=== PATIENT | male | born 1970 | race Hispanic/Latino ===

== ENCOUNTER 2016-12-25 20:18 | Emergency (ER) | payer OTHER ==
[~2016-12-25] VITALS: Ht 182.9 cm; Wt 125.0 kg
[2016-12-25 20:25] VITALS: BP 146/83
[2016-12-25] MEDS ORDERED: RANI1TAB6 PO (20:35)
[2016-12-25] MEDS ORDERED: HYDR25TA6 PO (20:35)
[2016-12-25] MEDS ORDERED: BUPR300T34 PO (20:35)
[2016-12-25] MEDS ORDERED: LOSA50TA20 (20:35)
[2016-12-25] MEDS ORDERED: ATOR40TA75 PO (20:35)
[2016-12-25] MEDS ORDERED: SERT-155 PO (20:36)
[2016-12-25] MEDS ORDERED: VITA200038 PO (20:37)
[2016-12-25] MEDS ORDERED: NS 1,000 ML IV ONE (23:15)
[2016-12-25 23:40] LABS: BASO # 0.1 K/mm3 (0.0-0.2); BASO % 0.9 % (0.0-1.0); EOS # 0.3 K/mm3 (0.0-0.50); LARGE UNSTAINED CELL # 0.1 K/mm3 (0.0-0.4); LARGE UNSTAINED CELL % 1.8 % (0.0-4.0); LYMPH # 2.1 K/mm3 (1.5-4.5); LYMPH % 30.6 % (24.0-44.0); MEAN CORPUSCULAR HEMOGLOBIN 32.2 pg (27.0-33.0); MEAN CORPUSCULAR HGB CONC 35.7 g/dl (32.0-36.5); MEAN CORPUSCULAR VOLUME 90.1 fl (80.0-96.0); MONO # 0.4 K/mm3 (0.0-0.8); MONO % 5.7 % (0.0-5.0); NEUTROPHILS # 3.9 K/mm3 (1.8-7.7); PLATELET COUNT, AUTOMATED 231 k/mm3 (150-450); RED CELL DISTRIBUTION WIDTH 12.1 % (11.5-14.5); WHITE BLOOD COUNT 6.8 K/mm3 (4.0-10.0)
[2016-12-26 00:03] LABS: ANION GAP 2 MEQ/L (8-16); BLOOD UREA NITROGEN 14 MG/DL (7-18); CALCIUM LEVEL 8.8 MG/DL (8.5-10.1); CARBON DIOXIDE LEVEL 31 MEQ/L (21-32); CHLORIDE LEVEL 108 MEQ/L (98-107); CREATININE FOR GFR 1.12 MG/DL (0.70-1.30); GLOMERULAR FILTRATION RATE > 60.0 (>60); GLUCOSE, FASTING 101 MG/DL (70-105); SODIUM LEVEL 141 MEQ/L (136-145)
[2016-12-26] MEDS ORDERED: ISOVUE-370 76% 100ML VIAL (Q9967) As Ordered ONE (00:05)
[2016-12-26] MEDS ORDERED: metroNIDAZOLE (FLAGYL) 250 MG TAB As Ordered ONE (01:44)
--- NOTE | 2016-12-26 01:53 | REPUSA ---
CLINICAL HISTORY: Abdominal pain. TECHNIQUE: Multiple axial, sagittal and coronal CT images were obtained through the abdomen and pelvi s after administration of intravenous contrast material. COMMENTS: Diffuse thickening of the rectosigmoid colon. Fat stranding surrounding the proximal sigmoid. The liver is moderately enlarged with decreased attenuation without mass or defect. There is no intra or extrahepatic biliary ductal dilatation. The spleen is normal. The gallbladder is within normal li mits. The pancreas is of normal contour and attenuation characteristics. There is no evidence of adre nal mass. Both kidneys demonstrate prompt and equal nephrograms. The kidneys are normal in size, shape and conf iguration. There is no evidence of renal or ureteral mass. No renal or ureteral calculi are identifie d. There is no hydroureter or hydronephrosis. No evidence for appendicitis. No evidence for small or large bowel obstruction. There is no evidence of abdominal ascites or lymphadenopathy. There is no evidence of intrinsic or extrinsic bladder mass. There is no pelvic ascites or lymphadeno macarena. Images of the lung bases show no evidence of pleural or parenchymal mass. There are no pleural effusi ons. The bony structures are free of lytic or blastic lesions. IMPRESSION: Acute sigmoid diverticulitis. No perforation or abscess formation. Thank you for your kind referral of this patient.
[2016-12-26] MEDS ORDERED: CIPROFLOXACIN 500 MG TAB PO ONE (02:00)
[2016-12-26] MEDS ORDERED: metroNIDAZOLE (FLAGYL) 500 MG TAB PO ONE (02:15)
[2017-02-11] MEDS ORDERED: ASTE0.15 (08:38)
[2017-02-11] MEDS ORDERED: ALBU17IN2 INH (08:38)
[2017-02-11] MEDS ORDERED: VENTAER IN (08:38)
[2017-02-11] MEDS ORDERED: LISI-538 PO (08:38)
== END 2016-12-26 02:10 | disposition home or self-care (01) ==
LOC: M ED 20:18
DX: K57.32 Diverticulitis of large intestine without perforation or abscess without bleeding (principal); I10 Essential (primary) hypertension; E78.4 Other hyperlipidemia
CPT/HCPCS: 74177; 80048; 85025; 99283; Q9967

== ENCOUNTER 2017-03-06 10:49 | Day surgery (SDC) | payer OTHER ==
[~2017-03-06] VITALS: Ht 182.9 cm; Wt 120.2 kg
[~2017-03-06 10:49] MED LIST: ALBU17IN2 INH; ASTE0.15; ATOR40TA75 PO; BUPR300T34 PO; HYDR25TA6 PO; LISI-538 PO; LOSA50TA20; RANI1TAB6 PO; SERT-155 PO; VENTAER IN; VITA200038 PO
[2017-03-06] MEDS ORDERED: NS 1,000 ML IV ONE (11:00)
[2017-03-06] MEDS ORDERED: PROPOFOL 200 MG/20 ML VIAL As Ordered ONE ×2 (11:33→11:41)
[2017-03-06] MEDS ORDERED: LIDOCAINE 2% INJ 100 MG/5 ML SDV (FOR ANES.) As Ordered ONE (11:33)
--- NOTE | 2017-03-06 11:58 | ROOR ---
Patient Name: Domo Antunez Procedure Date: 03/06/2017 11:34 AM Date of : 1970 Age: 47 Room: [facility] Gender: Male Note Status: Finalized Procedure: Colonoscopy Indications: Suspected diverticulitis Providers: DO Benjamin Abreu MD: FLAVIO CARVAJAL MD Requesting Provider: Medicines: Propofol per Anesthesia Complications: No immediate complications. Procedure: Pre-Anesthesia Assessment: - Prior to the procedure, a History and Physical was performed, and patient medications and allergies were reviewed. The patient is competent. The risks and benefits of the procedure and the sedation options and risks were discussed with the patient. All questions were answered and informed consent was obtained. Patient identification and proposed procedure were verified by the physician, the nurse, the anesthesiologist and the retail merchandiser technician in the endoscopy suite. Mental Status Examination: alert and oriented. Airway Examination: normal oropharyngeal airway and neck mobility. Respiratory Examination: clear to auscultation. CV Examination: normal. Prophylactic Antibiotics: The patient does not require prophylactic antibiotics. Prior Anticoagulants: The patient has taken no previous anticoagulant or antiplatelet agents. ASA Grade Assessment: II - A patient with mild systemic disease. After reviewing the risks and benefits, the patient was deemed in satisfactory condition to undergo the procedure. The anesthesia plan was to use monitored anesthesia care (MAC). Immediately prior to administration of medications, the patient was re-assessed for adequacy to receive sedatives. The heart rate, respiratory rate, oxygen saturations, blood pressure, adequacy of pulmonary ventilation, and response to care were monitored throughout the procedure. The physical status of the patient was re-assessed after the procedure. The Colonoscope was introduced through the anus and advanced to the cecum, identified by the appendiceal orifice, ileocecal valve and palpation. The colonoscopy was performed without difficulty. The patient tolerated the procedure well. Findings: The perianal exam findings include non-thrombosed internal hemorrhoids and internal hemorrhoids (Grade I). Four hyperplastic polyps were found in the sigmoid colon and ascending colon. The polyps were less than 5 mm in size. These polyps were removed with a cold biopsy forceps. Resection and retrieval were complete. Estimated blood loss was minimal. The exam was otherwise without abnormality on direct and retroflexion views. Impression: - Non-thrombosed internal hemorrhoids and internal hemorrhoids (Grade I) found on perianal exam. - Four less than 5 mm polyps in the sigmoid colon and in the ascending colon, removed with a cold biopsy forceps. Resected and retrieved. - The examination was otherwise normal on direct and retroflexion views. Recommendation: - Patient has a contact number available for emergencies. The signs and symptoms of potential delayed complications were discussed with the patient. Return to normal activities tomorrow. Written discharge instructions were provided to the patient. - Return to my office PRN. - Telephone my office for pathology results in 1 week. Santosh Atkins DO 03/06/2017 11:58:22 AM This report has been signed electronically. Number of Addenda: 0 Note Initiated On: 03/06/2017 11:34 AM Estimated Blood Loss: Estimated blood loss was minimal.
[2017-03-06 12:25] VITALS: BP 113/65
== END 2017-03-06 12:46 | disposition home or self-care (01) ==
LOC: M OPP 10:49
PROVIDERS: ATTEND Surgery
DX: K64.0 First degree hemorrhoids (principal); K63.5 Polyp of colon; I10 Essential (primary) hypertension; E78.5 Hyperlipidemia, unspecified; K21.9 Gastro-esophageal reflux disease without esophagitis; F41.9 Anxiety disorder, unspecified; F32.9 Major depressive disorder, single episode, unspecified; Z79.899 Other long term (current) drug therapy

== ENCOUNTER → 2018-10-22 | Outpatient (CLI) | payer OTHER ==
[~2018-10-22] MED LIST changes: -LOSA50TA20; +LOSA50TA88
--- NOTE | 2018-10-22 12:52 | REP ---
Right ankle four views: There is no fracture or dislocation. The mortise is symmetric. Mineralization is normal. There is a large accessory ossicle measuring 12 mm in diameter along the plantar surface of the calcaneus. There is a tiny Achilles calcaneal spur. Impression: Large accessory ossicle along the plantar surface of the calcaneus. Tiny calcaneal Achilles spur. No fracture or dislocation. Electronically Signed by Santosh Reynoso MD 10/22/2018 12:43 P
--- NOTE | 2018-10-22 12:55 | REP ---
Right foot four views: There is no fracture or dislocation. Mineralization and joint spaces are unremarkable. There is a large 12 mm calculus along the plantar surface of the calcaneus. There is a tiny calcaneal Achilles spur. Electronically Signed by Santosh Reynoso MD 10/22/2018 12:45 P
== END ==
LOC: M WUC 11:48
PROVIDERS: ATTEND Physician Assistant
DX: S93.601A Unspecified sprain of right foot, initial encounter (principal)

== ENCOUNTER → 2018-11-18 | Outpatient (CLI) | payer OTHER ==
[~2018-11-18] MED LIST changes: +PROHANCE 279.3MG/ML 15ML VIAL (A9576) As Ordered ONE; +PROHANCE 279.3MG/ML 5ML VIAL (A9576) As Ordered ONE
--- NOTE | 2018-11-19 10:04 | REP ---
MRI RIGHT ANKLE WITHOUT AND WITH CONTRAST: 11/18/2018 Comparison x-ray 10/22/2018, 08/05/29 19. CLINICAL HISTORY: Mass just above the medial ankle. TECHNIQUE: Sagittal T1 and STIR, axial fat suppressed T2, T1 without and with fat suppression with coronal fat suppressed T2, and following infusion of 20 mL ProHance, fat suppressed T1 axial and coronal images were performed. FINDINGS: There is a low T1, bright T2 bilobed focus about 3.5 cm above the tibial plafond laterally and posterolaterally. Appears to surround the posterior tibialis tendon and extends downward to the sheath just below the medial malleolus and upward 2 more centimeters. Overall vertical extent is about 7 cm. The transverse bilobed component has a diameter of 3.3 cm and its maximum thickness about 1.4 cm. It has lobulated contours which appear thin on the precontrast images. Rim enhancement on the contrast exam is typical appearance seen in ganglion cyst. I do not see a disruption or tear of the posterior tibial tendon. Fluid surrounds the tendon distally and some abuts the FDL. Trace fluid about the FHL. PB/PL tendons grossly intact. Spurring at the plantar calcaneal surface inferiorly with the tiny spur on radiograph developing at the Achilles insertion not well seen. Mortise joint was symmetric. There is no talar dome osteochondral defect. Subtalar joints are grossly intact. There is some fluid posterior to the posterior subtalar joint and posterior ankle as well as anterior ankle. Laxity of the anterior talofibular, posterior talofibular, calcaneofibular ligaments, anterior tibiofibular ligaments intact. AT, DL, and EHL tendons grossly intact. Marrow signal shows no definite bone bruise or fracture in the hind foot. The visualized tarsal bones and proximal metatarsals intact. IMPRESSION: 1. There is a complex lobulated cystic mass vertically extending 7 cm from above the tibial plafond to below the medial malleolus and associated with the sheath or tendon of the posterior tibialis. Has fluid signal characteristics by T1 and T2 and only shows rim enhancement very similar to ganglion. The posterior tibial tendon shows no tear or visible mass itself. 2. FDL and FHL tendons as well as the PB/PL and anterior tendons grossly intact. No Achilles tear or tendinopathy. 3. Anterior and posterior ankle ligamentous strain as described. No fracture, loose body, or disruption of the mortise joint. Electronically Signed by Anderson Diamond MD 11/19/2018 11:20 A
== END ==
LOC: M RAD 14:19
PROVIDERS: ATTEND Podiatrist
DX: M79.9 Soft tissue disorder, unspecified (principal)

== ENCOUNTER → 2018-11-25 | Outpatient (REF) | payer OTHER ==
[~2018-11-25] MED LIST changes: -ALBU17IN2 INH; -PROHANCE 279.3MG/ML 15ML VIAL (A9576) As Ordered ONE; -PROHANCE 279.3MG/ML 5ML VIAL (A9576) As Ordered ONE; +PROV108A INH; +RANI-356 PO; -RANI1TAB6 PO
== END ==
LOC: M LAB REF 11:57
PROVIDERS: ATTEND Podiatrist
DX: M67.471 Ganglion, right ankle and foot (principal)

== ENCOUNTER → 2018-12-23 | Outpatient (CLI) | payer OTHER ==
[~2018-12-23] MED LIST changes: -BUPR300T34 PO; +BUPR300T92 PO; +HYDR12.55 PO; +HYDR25TAB PO; -RANI-356 PO; +RANI-397 PO; -SERT-155 PO; +SERT50TA29 PO
[2018-12-23 12:59] LABS: BASO # 0.1 10^3/uL (0.0-0.2); BASO % 1.1 % (0.0-1.0); EOS # 0.1 10^3/uL (0.0-0.5); EOS % 1.5 % (0.0-3.0); HEMATOCRIT 48.9 % (42.0-52.0); LYMPH # 1.9 10^3/uL (1.5-5.0); LYMPH % 29.2 % (24.0-44.0); MEAN CORPUSCULAR HEMOGLOBIN 30.8 pg (27.0-33.0); MEAN CORPUSCULAR HGB CONC 34.8 g/dl (32.0-36.5); MEAN CORPUSCULAR VOLUME 88.6 fl (80.0-96.0); MONO # 0.5 10^3/uL (0.0-0.8); MONO % 7.3 % (0.0-5.0); NEUTROPHILS % 60.6 % (36.0-66.0); PLATELET COUNT, AUTOMATED 261 10^3/uL (150-450); RED BLOOD COUNT 5.52 10^6/uL (4.30-6.10); WHITE BLOOD COUNT 6.5 10^3/uL (4.0-10.0)
[2018-12-23 13:20] LABS: BLOOD UREA NITROGEN 16 MG/DL (7-18); CALCIUM LEVEL 9.9 MG/DL (8.5-10.1); CARBON DIOXIDE LEVEL 30 MEQ/L (21-32); CHLORIDE LEVEL 104 MEQ/L (98-107); CREATININE FOR GFR 1.18 MG/DL (0.70-1.30); GLOMERULAR FILTRATION RATE > 60.0 (>60); GLUCOSE, FASTING 90 MG/DL (70-100); POTASSIUM SERUM 4.2 MEQ/L (3.5-5.1); SODIUM LEVEL 139 MEQ/L (136-145)
--- NOTE | 2018-12-24 10:19 | ECGEPIP ---
[facility] Test Date: 2018-12-23 Pat Name: LIONEL ALFARO Department: Room: - Gender: Male Didactic Program In Dietetics Director: SARAH : 1970 Requested By: David Henry Order Number: [id number] Reading MD: Waldo Artis Measurements Intervals [place] Rate: 66 P: 2 OR: 194 QRS: 3 QRSD: 114 T: 2 QT: 433 QTc: 456 Interpretive Statements SINUS RHYTHM MODERATE INTRAVENTRICULAR CONDUCTION DELAY Prolonged QTc interval Nonspecific T wave abnormality Electronically Signed on 12-24-2018 10:19:34 EDT by Waldo Artis
== END ==
LOC: M LAB 12:09
PROVIDERS: ATTEND Podiatrist
DX: M25.571 Pain in right ankle and joints of right foot (principal); D49.2 Neoplasm of unspecified behavior of bone, soft tissue, and skin

== ENCOUNTER 2019-01-02 07:20 | Day surgery (SDC) | payer OTHER ==
[~2019-01-02] VITALS: Ht 182.9 cm; Wt 127.6 kg
[~2019-01-02 07:20] MED LIST changes: +BACITRACIN PWD 50,000 UNITS VIAL As Ordered ONE; +BUPIVACAINE HCL 0.5% 30 ML VIAL As Ordered ONE; +BUPR300T34 PO; -BUPR300T92 PO; +KETOROLAC 60 MG/2 ML VIAL (J1885) As Ordered ONE; +LIDOCAINE 2% INJ 100 MG/5 ML SDV (FOR ANES.) As Ordered ONE; +LIDOCAINE 2% MDV 20 ML VIAL As Ordered ONE; +LR 1,000 ML IV ONE; +MIDAZOLAM INJ 2 MG/2 ML VIAL (J2250) As Ordered ONE; +NEOSPORIN GU IRRIG 20 ML VIAL As Ordered ONE; +ONDANSETRON 4MG/2ML VIAL (J2405) As Ordered ONE; +RANI-356 PO; -RANI-397 PO; +SERT-155 PO; -SERT50TA29 PO; +ceFAZolin SOD 2 GM in IV 1 EA IV ONE; +dexameTHASONE 4 MG/ML 1ML VIAL (J1100) As Ordered ONE; +fentaNYL 100 MCG/2 ML INJECTION (J3010) As Ordered ONE
[2019-01-02] MEDS ORDERED: PROPOFOL 200 MG/20 ML VIAL As Ordered ONE (07:57)
[2019-01-02] MEDS ORDERED: ROCURONIUM BROMIDE 50 MG/5 ML VIAL As Ordered ONE (08:34)
[2019-01-02] MEDS ORDERED: fentaNYL 100 MCG/2 ML INJECTION (J3010) As Ordered ONE (09:37)
[2019-01-02] MEDS ORDERED: ACETAMINOPHEN 1000MG 100ML IV BTL (OFIRMEV) (J0131 PER 10MG) As Ordered ONE (09:38)
[2019-01-02] MEDS ORDERED: SUGAMMADEX SODIUM 500 MG/5 ML VIAL (BRIDION) As Ordered ONE (09:55)
[2019-01-02] MEDS ORDERED: ePHEDrine SULFATE 25 MG/5 ML(5MG/ML) SYRINGE As Ordered ONE (10:13)
[2019-01-02] MEDS ORDERED: dexameTHASONE 4 MG/ML 1ML VIAL (J1100) As Ordered ONE (10:25)
[2019-01-02 12:00] VITALS: BP 120/74
[2019-01-02] MEDS ORDERED: ONDANSETRON 4MG/2ML VIAL (J2405) IV PRN (12:00)
[2019-01-02] MEDS ORDERED: fentaNYL 100 MCG/2 ML INJECTION (J3010) IV PRN (12:00)
[2019-01-02] MEDS ORDERED: LR 1,000 ML IV SCH (12:00)
--- NOTE | 2019-01-02 21:39 | RO ---
DATE OF PROCEDURE: 01/02/2019 PREOPERATIVE DIAGNOSIS: Ganglionic cyst right ankle. POSTOPERATIVE DIAGNOSIS: Ganglionic cyst right ankle. OPERATIVE PROCEDURE: Excision of ganglionic cyst right foot. SURGEON: David Henry DPM VIDEO CAMERA OPERATOR: None. ANESTHESIA: General. IRRIGATION: Dilute bacitracin, neomycin and polymyxin B solution. HEMOSTASIS: Thigh pneumatic tourniquet at 300 mmHg for 45 minutes on the right side. COMPLICATIONS: None. DESCRIPTION OF OPERATION: On 01/02/2019 this 48-year-old male was taken from his hospital room to the operating room. Following the induction of IV sedation and general anesthesia, the right lower extremity was prepped and draped in the usual aseptic manner. Thigh pneumatic tourniquet was rapidly inflated to 300 mmHg. Lower extremity was returned to the operating room table, sterilely draped and was cleaned and the following procedure was performed. EXCISION OF GANGLIONIC CYST RIGHT ANKLE: Attention was directed to the patient's right ankle where inferior to the tip of the medial malleolus, an incision was made and extended dorsally along the posterior shaft of the tibia measuring approximately 8 cm. Dissection was carried down where the retinaculum was cut over the posterior tibial tendon down to the flexor retinaculum on the superior margin inferior to the medial malleolus. A large ganglionic cyst with hypertrophied synovium could be seen. The ganglionic cyst as well as al the hypertrophied synovium around the posterior tibial tendon was then resected. The wound was flushed with copious amounts of dilute bacitracin, neomycin and polymyxin B solution. The retinaculum was coapted and maintained with #2-0 PDS suture in a simple interrupted type fashion. Subcutaneous tissues were coapted and maintained with #2-0 Monocryl in a simple interrupted type fashion and skin incisions were coapted and maintained utilizing #4-0 Prolene in a simple interrupted type fashion. A dry sterile dressing was applied. The patient having apparently tolerated the surgical procedure well was taken from the OR to the recovery room for further monitoring by the anesthesia department. All surgical specimens during the operating procedure sent to pathology for gross and microscopic examination. Post operative instructions given upon discharge.
== END 2019-01-02 12:37 | disposition home or self-care (01) ==
LOC: M SDC 07:20
PROVIDERS: ATTEND Podiatrist
DX: M67.471 Ganglion, right ankle and foot (principal); I10 Essential (primary) hypertension; E78.00 Pure hypercholesterolemia, unspecified; K57.32 Diverticulitis of large intestine without perforation or abscess without bleeding; K21.9 Gastro-esophageal reflux disease without esophagitis; M15.0 Primary generalized (osteo)arthritis; F41.9 Anxiety disorder, unspecified; F32.9 Major depressive disorder, single episode, unspecified; J45.909 Unspecified asthma, uncomplicated; R06.83 Snoring; G47.33 Obstructive sleep apnea (adult) (pediatric); J30.89 Other allergic rhinitis; Z79.899 Other long term (current) drug therapy; Z68.37 Body mass index [BMI] 37.0-37.9, adult
CPT/HCPCS: 28090; 88304; 97116; J0131; J0690; J1100; J1885; J2250; J2405; J3010

== ENCOUNTER → 2019-08-27 | Outpatient (CLI) | payer OTHER ==
[~2019-08-27] MED LIST changes: -BACITRACIN PWD 50,000 UNITS VIAL As Ordered ONE; -BUPIVACAINE HCL 0.5% 30 ML VIAL As Ordered ONE; -BUPR300T34 PO; +BUPR300T92 PO; -KETOROLAC 60 MG/2 ML VIAL (J1885) As Ordered ONE; -LIDOCAINE 2% INJ 100 MG/5 ML SDV (FOR ANES.) As Ordered ONE; -LIDOCAINE 2% MDV 20 ML VIAL As Ordered ONE; -LR 1,000 ML IV ONE; -MIDAZOLAM INJ 2 MG/2 ML VIAL (J2250) As Ordered ONE; -NEOSPORIN GU IRRIG 20 ML VIAL As Ordered ONE; -ONDANSETRON 4MG/2ML VIAL (J2405) As Ordered ONE; -RANI-356 PO; +RANI-397 PO; -SERT-155 PO; +SERT50TA29 PO; -ceFAZolin SOD 2 GM in IV 1 EA IV ONE; -dexameTHASONE 4 MG/ML 1ML VIAL (J1100) As Ordered ONE; -fentaNYL 100 MCG/2 ML INJECTION (J3010) As Ordered ONE
--- NOTE | 2019-08-28 01:15 | REP ---
Clinical: Right hip pain. Technique: Neutral and frog lateral views of the right hip. Findings: Age-related changes include increased sclerosis to the acetabular roof with very minimal joint space narrowing. No significant osteophytosis or further degenerative changes are appreciated. No evidence for acute fracture or dislocation. Surrounding soft tissues are unremarkable. Impression: Age-related changes suggested. Electronically Signed by Ayush Street MD 08/28/2019 01:06 A
--- NOTE | 2019-08-28 01:27 | REP ---
Clinical: Lower back pain. Technique: AP, lateral, coned-down views of the lumbosacral spine. Findings: Alignment and lordosis maintained without evidence for acute fracture / compression injury or subluxation. Moderate multilevel degenerative changes include endplate sclerosis, marginal osteophytosis, hypertrophic facet changes and minimal disc space narrowing. Impression: Moderate multilevel degenerative spondylosis. No acute fracture or subluxation. Electronically Signed by Ayush Street MD 08/28/2019 01:18 A
== END ==
LOC: M WUC 15:20
PROVIDERS: ATTEND Physician Assistant
DX: M51.37 Other intervertebral disc degeneration, lumbosacral region (principal); M54.5 Low back pain; M25.551 Pain in right hip

== ENCOUNTER 2020-05-04 15:10 | Inpatient (IN) | payer OTHER ==
[~2020-05-04] VITALS: Ht 180.3 cm; Wt 120.0 kg
--- OUTSIDE RECORDS SUMMARY | 2020-05-04 15:21 | CCD | Continuity of Care Document ---
Author Author Domo BYERS Organization Unknown Address [address] [place] [address] [place] [address] Phone [phone] Care Team Providers Care Vehicle Mechanic Name Role Phone Bisi Smiley AUTM [phone] Krishna Dennis Arnulfo AUTM [phone] Problems Description No Information Available Social History Type Date Description Comments Sex Unknown ETOH Use Occasionally consumes alcohol Tobacco Use Start: Unknown Patient has never smoked Smoking Status Reviewed: 05/03/20 Patient has never smoked Allergies, Adverse Reactions, Alerts Active Allergies Reaction Severity Comments Date Walnuts 05/03/2020 Pecans 05/03/2020 Pistachios 05/03/2020 Inactive Allergies NKDA 05/10/2014 Medications Active Medications SIG Qnty Indications Ordering Provide r Date Prednisone 20mg Tablets take one tablet twice a day x 5 days 10tabs J45.21 Ashley Cheng JR. 04/29/2020 Azithromycin 250mg Tablets take two tablets day one, one tablet day 2-5 6tabs J45.21 Jarrett ziegler JR., M.D. 04/29/2020 Bupropion HCL ER (XL) 300mg Tablets ER 24HR Kaylee Valera RPA 00 Vitamin D3 Adult Gummies Unknown Sertraline HCL 100mg Tablets Unknown Atorvastatin Calcium 80mg Tablets Unknown Lisinopril Unknown Albuterol Sulfate Unknown 0000/0 000 Medications Administered in Office Medication SIG Qnty Indications Ordering Provider Date Methylprednisolone Sodium Succinate To 1 25 MG Injection CHRISTIAN Lay 2020 Immunizations Description No Information Available Vital Signs Date Vital Result Comment 05/03/2020 1:39pm BP Systolic 132 mmHg BP Diastolic 81 mmHg Heart Rate 96 /min Respiratory Rate 23 /min O2 % BldC Oximetry 96 % Body Temperature 99.3 F Weight 262.00 lb Pain Level 4 04/29/2020 8:14am BP Systolic 129 mmHg BP Diastolic 89 mmHg Heart Rate 77 /min Respiratory Rate 16 /min O2 % BldC Oximetry 98 % Body Temperature 97.7 F Weight 262.00 lb Pain Level 1 Results Description No Information Available Procedures Date Code Description Status 05/03/2020 74996 Therapeutic, Prophylactic Or [place] gnostic Injection Subq/Im Completed Medical Devices Description No Information Available Encounters Type Date Location Provider Dx Diagnosis Office Visit 05/03/2020 1:20p Main Office CHRISTIAN Lay J45.9 01 Unspecified asthma with (acute) exacerbation Z20.828 Contact w and exposure to ot h viral communicable diseases Office Visit 04/29/2020 8:00a Main Office CHRISTIAN Nguyen J45 .21 Mild intermittent asthma with (acute) exacerbation Assessments Date Code Description Provider 05/03/2020 J45.901 Unspecified asthma with (acute) exacerbation CHRISTIAN Lay 05/03/2020 Z20.828 Contact with and (park spected) exposure to other viral communicable diseases CHRISTIAN Lay 04/29/2020 J45.21 Mild intermittent asthma with (a cute) exacerbation CHRISTIAN Nguyen Plan of Treatment No Information Available Functional Status Description No Information Available Mental Status Description No Information Available Referrals Description No Information Available
--- OUTSIDE RECORDS SUMMARY | 2020-05-04 15:22 | CCD | Continuity of Care Document ---
Author Author Domo PHAN [place] Organization Unknown Address [address] [place] [address] [place] [address] Phone [phone] Care Team Providers Care Centrifugal Machine Tender Name Role Phone Bisi SmileyM [phone] Problems Description No Information Available Social History Type Date Description Comments Sex Unknown ETOH Use Occasionally consumes alcohol Tobacco Use Start: Unknown Patient has never smoked Smoking Status Reviewed: 04/29/20 Patient has never smoked Allergies, Adverse Reactions, Alerts Description No Known Drug Allergies Medications Active Medications SIG Qnty Indications Ordering [...] Tablets Unknown Lisinopril Unknown Albuterol Sulfate Unknown 0 000 Immunizations Description No Information Available Vital Signs Date Vital Result Comment 04/29/2020 8:14am BP Systolic 129 mmHg BP Diastolic 89 mmHg Heart Rate 77 /min Respiratory Rate 16 /min O2 % BldC Oximetry 98 % Body Temperature 97.7 F Weight 262.00 lb Pain Level 1 10/22/2018 11:24am BP Systolic 132 mmHg BP Diastolic 87 mmHg Heart Rate 65 /min Respiratory Rate 16 /min O2 % BldC Oximetry 95 % Body Temperature 97.8 F Weight 280.00 lb Height 72 inches 6'0" BMI (Body Mass Index) 38.0 kg/m2 Pain Level 8 Results Description No Information Available Procedures Description No Information Available Medical Devices Description No Information Available Encounters Type Date Location Provider Dx Diagnosis Office Visit 04/29/2020 8:00a Main Office CHRISTIAN Nguyen J45 .21 Mild intermittent asthma with (acute) exacerbation Assessments Date Code Description Provider 04/29/2020 J45.21 Mild intermittent asthma with (a cute) exacerbation CHRISTIAN Nguyen Plan of Treatment 04/29/2020 - CHRISTIAN Nguyen* J45.21 Mild intermittent asthma with (acute) exacerbation* New Medication:* Prednisone 20 mg - take one tablet twice a day x 5 days * Azithromycin 250 mg - take two tablets day one, one tablet day 2-5 Functional Status Description No Information Available Mental Status Description No Information Available Referrals Description No Information Available
--- OUTSIDE RECORDS SUMMARY | 2020-05-04 15:22 | CCD ---
Author Author [facility] Organization [facility] Address Unknown Phone Unavailable Care Team Providers Care Clinical Resource Nurse Name Role Phone Scordo, M Bisi PA Unavailable Unavailable Scordo, M Bisi PA Unavailable Unavailable Scordo, M Bisi PA Unavailable Unavailable Scordo, M Bisi PA Unavailable Unavailable Scordo, M Bisi PA Unavailable Unavailable Scordo, M Bisi PA Unavailable Unavailable Scordo, M Bisi PA Unavailable Unavailable Scordo, M Bisi PA Unavailable Unavailable Scordo, M Bisi PA Unavailable Unavailable Scordo, M Bisi PA Unavailable Unavailable Scordo, M Bisi PA Unavailable Unavailable Scordo, M Bisi PA Unavailable Unavailable Scordo, M Bisi PA Unavailable Unavailable Scordo, M Bisi PA Unavailable Unavailable Scordo, M Bisi PA Unavailable Unavailable Scordo, M Bisi PA Unavailable Unavailable Scordo, M Bisi PA Unavailable Unavailable Scordo, M Bisi PA Unavailable Unavailable Scordo, M Bisi PA Unavailable Unavailable Scordo, M Bisi PA Unavailable Unavailable Scordo, M Bisi PA Unavailable Unavailable Scordo, M Bisi PA Unavailable Unavailable Scordo, M Bisi PA Unavailable Unavailable Scordo, M Bisi PA Unavailable Unavailable Scordo, M Bisi PA Unavailable Unavailable Scordo, M Bisi PA Unavailable Unavailable Scordo, M Bisi PA Unavailable Unavailable Scordo, M Bisi PA Unavailable Unavailable Scordo, M Bisi PA Unavailable Unavailable Scordo, M Bisi PA Unavailable Unavailable Scordo, M Bisi PA Unavailable Unavailable Scordo, M Bisi PA Unavailable Unavailable Scordo, M Bisi PA Unavailable Unavailable Scordo, M Bisi PA Unavailable Unavailable Scordo, M Bisi PA Unavailable Unavailable Scordo, M Bisi PA Unavailable Unavailable Scordo, M Bisi PA Unavailable Unavailable Scordo, M Bisi PA Unavailable Unavailable Scordo, M Bisi PA Unavailable Unavailable Scordo, M Bisi PA Unavailable Unavailable Scordo, M Bisi PA Unavailable Unavailable MCELHERAN, ARACELIS PA Unavailable Unavailable MCELHERAN, ARACELIS PA Unavailable Unavailable MCELHERAN, ARACELIS PA Unavailable Unavailable MCELHERAN, ARACELIS PA Unavailable Unavailable MCELHERAN, ARACELIS PA Unavailable Unavailable MCELHERAN, ARACELIS PA Unavailable Unavailable MCELHERAN, ARACELIS PA Unavailable Unavailable MCELHERAN, ARACELIS PA Unavailable Unavailable MCELHERAN, ARACELIS PA Unavailable Unavailable MCELHERAN, ARACELIS PA Unavailable Unavailable MCELHERAN, ARACELIS PA Unavailable Unavailable MCELHERAN, ARACELIS PA Unavailable Unavailable MCELHERAN, ARACELIS PA Unavailable Unavailable MCELHERAN, ARACELIS PA Unavailable Unavailable MCELHERAN, ARACELIS PA Unavailable Unavailable MCELHERAN, ARACELIS PA Unavailable Unavailable MCELHERAN, ARACELIS PA Unavailable Unavailable MCELHERAN, ARACELIS PA Unavailable Unavailable MCELHERAN, ARACELIS PA Unavailable Unavailable MCELHERAN, ARACELIS PA Unavailable Unavailable MCELHERAN, ARACELIS PA Unavailable Unavailable MCELHERAN, ARACELIS PA Unavailable Unavailable MCELHERAN, ARACELIS PA Unavailable Unavailable MCELHERAN, ARACELIS PA Unavailable Unavailable MCELHERAN, ARACELIS PA Unavailable Unavailable MCELHERAN, ARACELIS PA Unavailable Unavailable MCELHERAN, ARACELIS PA Unavailable Unavailable MCELHERAN, ARACELIS PA Unavailable Unavailable MCELHERAN, ARACELIS PA Unavailable Unavailable MCELHERAN, ARACELIS PA Unavailable Unavailable MCELHERAN, ARACELIS PA Unavailable Unavailable MCELHERAN, ARACELIS PA Unavailable Unavailable MCELHERAN, ARACELIS PA Unavailable Unavailable MCELHERAN, ARACELIS PA Unavailable Unavailable MCELHERAN, ARACELIS PA Unavailable Unavailable MCELHERAN, ARACELIS PA Unavailable Unavailable MCELHERAN, ARACELIS PA Unavailable Unavailable MCELHERAN, ARACELIS PA Unavailable Unavailable MCELHERAN, ARACELIS PA Unavailable Unavailable MCELHERAN, ARACELIS PA Unavailable Unavailable MCELHERAN, ARACELIS PA Unavailable Unavailable MCELHERAN, ARACELIS PA Unavailable Unavailable MCELHERAN, ARACELIS PA Unavailable Unavailable MCELHERAN, ARACELIS PA Unavailable Unavailable MCELHERAN, ARACELIS PA Unavailable Unavailable MCELHERAN, ARACELIS PA Unavailable Unavailable MCELHERAN, ARACELIS PA Unavailable Unavailable MCELHERAN, ARACELIS PA Unavailable Unavailable MCELHERAN, ARACELIS PA Unavailable Unavailable MCELHERAN, ARACELIS PA Unavailable Unavailable MCELHERAN, ARACELIS PA Unavailable Unavailable MCELHERAN, ARACELIS PA Unavailable Unavailable MCELHERAN, ARACELIS PA Unavailable Unavailable MCELHERAN, ARACELIS PA Unavailable Unavailable MCELHERAN, ARACELIS PA Unavailable Unavailable MCELHERAN, ARACELIS PA Unavailable Unavailable Pleskach, Carley OSTOMY NURSE Unavailable Unavailable Pleskach, Carley OSTOMY NURSE Unavailable Unavailable Pleskach, Carley OSTOMY NURSE Unavailable Unavailable Pleskach, Carley OSTOMY NURSE Unavailable Unavailable Pleskach, Carley OSTOMY NURSE Unavailable Unavailable Pleskach, Carley OSTOMY NURSE Unavailable Unavailable Pleskach, Carley OSTOMY NURSE Unavailable Unavailable Pleskach, Carley OSTOMY NURSE Unavailable Unavailable Pleskach, Carley OSTOMY NURSE Unavailable Unavailable Pleskach, Carley OSTOMY NURSE Unavailable Unavailable Pleskach, Carley OSTOMY NURSE Unavailable Unavailable Pleskach, Carley OSTOMY NURSE Unavailable Unavailable Pleskach, Carley OSTOMY NURSE Unavailable Unavailable Pleskach, Carley OSTOMY NURSE Unavailable Unavailable Pleskach, Carley OSTOMY NURSE Unavailable Unavailable Pleskach, Carley OSTOMY NURSE Unavailable Unavailable Pleskach, Carley OSTOMY NURSE Unavailable Unavailable Pleskach, Carley OSTOMY NURSE Unavailable Unavailable Pleskach, Carley OSTOMY NURSE Unavailable Unavailable Pleskach, Carley OSTOMY NURSE Unavailable Unavailable Pleskach, Carley OSTOMY NURSE Unavailable Unavailable Pleskach, Carley OSTOMY NURSE Unavailable Unavailable Pleskach, Carley OSTOMY NURSE Unavailable Unavailable Pleskach, Carley OSTOMY NURSE Unavailable Unavailable Pleskach, Carley OSTOMY NURSE Unavailable Unavailable Pleskach, Carley OSTOMY NURSE Unavailable Unavailable Pleskach, Carley OSTOMY NURSE Unavailable Unavailable Pleskach, Carley OSTOMY NURSE Unavailable Unavailable Lawler, Alley Alicia PA Unavailable Unavailable Lawler, Alley Alicia PA Unavailable Unavailable Lawler, Alley Alicia PA Unavailable Unavailable Lawler, Alley Alicia PA Unavailable Unavailable Lawler, Alley Alicia PA Unavailable Unavailable Lawler, Alley Alicia PA Unavailable Unavailable Lawler, Alley Alicia PA Unavailable Unavailable Lawler, Alley Alicia PA Unavailable Unavailable Lawler, Alley Alicia PA Unavailable Unavailable Lawler, Alley GONZALES Unavailable Unavailable Curt, A Mera BENAVIDES Unavailable Unavailable Curt, A Mera BENAVIDES Unavailable Unavailable Curt, A Mera BENAVIDES Unavailable Unavailable Curt, A Mera BENAVIDES Unavailable Unavailable Curt, A Mera BENAVIDES Unavailable Unavailable Curt, A Mera BENAVIDES Unavailable Unavailable Curt, Ted Tesfaye MD Unavailable Unavailable Curt, Ted Tesfaye MD Unavailable Unavailable Curt, A Mera BENAVIDES Unavailable Unavailable Curt, A Mera BENAVIDES Unavailable Unavailable Curt, A Mera BENAVIDES Unavailable Unavailable Curt, A Mera BENAVIDES Unavailable Unavailable Curt, A Mera BENAVIDES Unavailable Unavailable Curt, A Mera BENAVIDES Unavailable Unavailable Curt, A Mera BENAVIDES Unavailable Unavailable Curt, A Mera BENAVIDES Unavailable Unavailable Curt, A Mera BENAVIDES Unavailable Unavailable Curt, A Mera BENAVIDES Unavailable Unavailable Curt, A Mera BENAVIDES Unavailable Unavailable Curt, A Mera BENAVIDES Unavailable Unavailable Crut, A Mera BENAVIDES Unavailable Unavailable Curt, A Mera BENAVIDES Unavailable Unavailable Curt, A Mera BENAVIDES Unavailable Unavailable Curt, A Mera BENAVIDES Unavailable Unavailable Curt, A Mera BENAVIDES Unavailable Unavailable Curt, A Mera BENAVIDES Unavailable Unavailable Curt, A Mera BENAVIDES Unavailable Unavailable Curt, A Mera BENAVIDES Unavailable Unavailable Curt, A Mera BENAVIDES Unavailable Unavailable Curt, Ted Tesfaye MD Unavailable Unavailable Curt, A Mera BENAVIDES Unavailable Unavailable Curt, A Mera BENAVIDES Unavailable Unavailable Curt, A Mera BENAVIDES Unavailable Unavailable Curt, A Mera BENAVIDES Unavailable Unavailable Curt, A Mera BENAVIDES Unavailable Unavailable Curt, A Mera BENAVIDES Unavailable Unavailable Curt, A Mera BENAVIDES Unavailable Unavailable Curt, Ted Tesfaye MD Unavailable Unavailable Curt, Ted Tesfaye MD Unavailable Unavailable Curt, Ted Tesfaye MD Unavailable Unavailable Curt, Ted Tesfaye MD Unavailable Unavailable Curt, Ted Tesfaye MD Unavailable Unavailable Curt, A Mera BENAVIDES Unavailable Unavailable Curt, Ted Tesfaye MD Unavailable Unavailable Curt, Ted Tesfaye MD Unavailable Unavailable Curt, Ted Tesfaye MD Unavailable Unavailable Curt, Ted Tesfaye MD Unavailable Unavailable Curt, A Mera BENAVIDES Unavailable Unavailable Curt, A Mera BENAVIDES Unavailable Unavailable Curt, A Mera BENAVIDES Unavailable Unavailable Curt, A Mera BENAVIDES Unavailable Unavailable Curt, A Mera BENAVIDES Unavailable Unavailable Curt, A Mera BENAVIDES Unavailable Unavailable Curt, Ted Tesfaye MD Unavailable Unavailable Curt, Ted Tesfaye MD Unavailable Unavailable Curt, Ted Tesfaye MD Unavailable Unavailable Curt, Ted Tesfaye MD Unavailable Unavailable Curt, Ted Tesfaye MD Unavailable Unavailable Curt, Ted Tesfaye MD Unavailable Unavailable Curt, Ted Tesfaye MD Unavailable Unavailable Curt, A Mera MD Unavailable Unavailable Curt, A Mera MD Unavailable Unavailable Curt, A Mera MD Unavailable Unavailable Curt, A Mera MD Unavailable Unavailable Curt, A Mera MD Unavailable Unavailable Curt, A Mera MD Unavailable Unavailable Curt, A Mera MD Unavailable Unavailable Curt, A Mera MD Unavailable Unavailable Curt, A Mera MD Unavailable Unavailable Curt, A Mera MD Unavailable Unavailable Curt, A Mera MD Unavailable Unavailable Curt, A Mera MD Unavailable Unavailable Curt, A Mera MD Unavailable Unavailable Curt, A Mera MD Unavailable Unavailable Curt, A Mera MD Unavailable Unavailable LETTIERE, A ARACELIS PA Unavailable Unavailable LETTIERE, A ARACELIS PA Unavailable Unavailable LETTIERE, A ARACELIS PA Unavailable Unavailable LETTIERE, A ARACELIS PA Unavailable Unavailable LETTIERE, A ARACELIS PA Unavailable Unavailable LETTIERE, A ARACELIS PA Unavailable Unavailable LETTIERE, A ARACELIS PA Unavailable Unavailable LETTIERE, A ARACELIS PA Unavailable Unavailable LETTIERE, A ARACELIS PA Unavailable Unavailable LETTIERE, A ARACELIS PA Unavailable Unavailable LETTIERE, A ARACELIS PA Unavailable Unavailable LETTIERE, A ARACELIS PA Unavailable Unavailable LETTIERE, A ARACELIS PA Unavailable Unavailable LETTIERE, A ARACELIS PA Unavailable Unavailable LETTIERE, A ARACELIS PA Unavailable Unavailable LETTIERE, A ARACELIS PA Unavailable Unavailable LETTIERE, A ARACELIS PA Unavailable Unavailable LETTIERE, A ARACELIS PA Unavailable Unavailable LETTIERE, A ARACELIS PA Unavailable Unavailable LETTIERE, A ARACELIS PA Unavailable Unavailable LETTIERE, A ARACELIS PA Unavailable Unavailable LETTIERE, A ARACELIS PA Unavailable Unavailable LETTIERE, A ARACELIS PA Unavailable Unavailable LETTIERE, A ARACELIS PA Unavailable Unavailable LETTIERE, A ARACELIS PA Unavailable Unavailable LETTIERE, A ARACELIS PA Unavailable Unavailable LETTIERE, A ARACELIS PA Unavailable Unavailable LETTIERE, A ARACELIS PA Unavailable Unavailable LETTIERE, A ARACELIS PA Unavailable Unavailable Re-disclosure Warning The records that you are about to access may contain information from federally-assisted alcohol or drug abuse programs. If such information is present, then the following federally mandated warning applies: This information has been disclosed to you from records protected by federal confidentiality rules (42 CFR part 2). The federal rules prohibit you from making any further disclosure of this information unless further disclosure is expressly permitted by the written consent of the person to whom it pertains or as otherwise permitted by 42 CFR part 2. A general authorization for the release of medical or other information is NOT sufficient for this purpose. The Federal rules restrict any use of the information to criminally investigate or prosecute any alcohol or drug abuse patient.The records that you are about to access may contain highly sensitive health information, the redisclosure of which is protected by Article 27-F of the [facility] Public Health law. If you continue you may have access to information: Regarding HIV / AIDS; Provided by facilities licensed or operated by the [facility] Office of Mental Health; or Provided by the [facility] Office for People With Developmental Disabilities. If such information is present, then the following [facility] mandated warning applies: This information has been disclosed to you from confidential records which are protected by state law. State law prohibits you from making any further disclosure of this information without the specific written consent of the person to whom it pertains, or as otherwise permitted by law. Any unauthorized further disclosure in violation of state law may result in a fine or chcf sentence or both. A general authorization for the release of medical or other information is NOT sufficient authorization for further disc losure. Allergies and Adverse Reactions Type Description Substance Reaction Status Data Source(s ) Drug Allergy NKDA NKDA [facility] ([facility], [facility]) Family History Family Member Name Family Member Gender Family Member Status Date o f Status Description Data Source(s) Unknown Unknown Problem [facility] ([facility], [facility]) mother,sisters x2 Unknown Unknown Problem [facility] ([facility] maternal side Unknown Male Problem [facility] ([facility], ) () - BRAIN Encounters Encounter Providers Location Date Indications Data Source(s ) Outpatient Attender: Alicia Gamboa Prim selvin 05/03/2020 12:20:00 PM EST [facility] ([facility], [facility]) Outpatient Attender: ARACELIS Gamboa Prim selvin 04/29/2020 07:00:00 AM EST [facility] ([facility], [facility]) Outpatient Attender: Carley Palomares [facility] Main Office 12/01/2019 1 0:00:00 AM EDT [facility] ([facility] Outpatient Attender: ARACELIS GONZALES Physical Therapy 10/28/2019 09:45:00 AM EDT [facility] ([facility] ) Outpatient Referrer: ARACELIS GONZALES 09/29/2019 01:21 :00 PM EDT [facility] Outpatient Referrer: [facility] MD 09/29/2019 01:19:00 PM EDT [facility] Outpatient Referrer: Mera Elias MD 09/29/2019 01:19:00 PM EDT [facility] Outpatient Attender: ARACELIS GONZALES Physical Therapy 09/23/2019 10:00:00 AM EDT [facility] ([facility]) Outpatient Attender: Bisi GONZALES Main Office 08/25/2019 03:15:00 PM EDT [facility] ([facility] Medications Medication Brand Name Start Date Product Form Dose Route Admi nistrative Instructions Pharmacy Instructions Status Indications Reaction Description Data Source(s) Methylprednisolone Sodium Succinate To 125 MG 05/03/2020 1 2:00:00 AM EST completed [facility] ([facility]) Medication administered onsite Azithromycin 250 MG Oral Tablet Azithromycin 04/29/2020 12:00:00 AM EST active [facility] ([facility]) Prednisone 20 MG Oral Tablet Prednisone 04/29/2020 12:00:00 AM EST active [facility] ([facility]) atorvastatin 80 MG Oral Tablet Atorvastatin Calcium 12/04/2019 1 2:00:00 AM EDT ORAL active [facility] ( [facility] gabapentin 100 MG Oral Capsule Gabapentin 09/23/2019 12:00:00 AM EDT ORAL active [facility] ([facility]) Methylprednisolone 4 MG Oral Tablet [Medrol] Medrol 12:00:00 AM EDT active [facility] ( [facility]) meloxicam 15 MG Oral Tablet Meloxicam 08/25/2019 12:00:00 AM EDT ORAL active [facility] ([facility] meloxicam 15 MG Oral Tablet Meloxicam 08/25/2019 12:00:00 AM EDT ORAL active [facility] ([facility]) Insurance Providers Payer name Policy type / Coverage type Policy ID Covered democrat ID Covered democrat's relationship to sellers Policy Sellers Plan Information [facility] O [id number] S [id number] [facility] [id number] SP [id number] [facility] [id number] Self [id number] [facility] [id number] Self [id number] [place] [employer] [id number] Self [id number] [place] [employer] [id number] Self [id number] [place] [employer] [id number] Self [id number] [place] [employer] [id number] Self [id number] [place] [employer] [id number] Self 00 [id number] [facility] Maintenance Organization (HMO) [id number] Self [id number] [facility] [id number] SP [id number] [facility] Commercial [id number] Self [id number] [employer] Commercial [id number] Self [id number] [place] [employer] Self [facility] Self [id number] Problems, Conditions, and Diagnoses Code Display Name Description Problem Type Effective Dates Data Source(s) 82429093 Allergic rhinitis Allergic rhinitis Problem 12/01/2019 12:00:00 AM EDT [facility] ([facility] [id number] Essential hypertension Essential hypertension Problem 12/01/2019 12:00:00 AM EDT [facility] ([facility] [id number] Obstructive sleep apnea syndrome Obstructive sle ep apnea syndrome Problem 12/01/2019 12:00:00 AM EDT [facility] ([facility] [id number] Adjustment disorder with depressed mood Adjustment disorder with depressed mood Problem 12/01/2019 12:00:00 AM EDT [facility] ([facility] Surgeries/Procedures Procedure Description Date Indications Data Source(s) Therapeutic, Prophylactic Or Diagnostic Injection Subq/Im 05/03/2020 12:00:00 AM EST [facility] Traction Mechanical 12/08/2019 12:00:00 AM EDT [facility] ([facility]) MANUAL THERAPY TQS 1/> REGIONS EACH 15 MINUTES 12:00:00 AM EDT [facility] ([facility]) Re-Eval Of PT Established Plan Of Care 20Mins Face To Face P T/Fam 12/08/2019 12:00:00 AM EDT [facility] ([facility]) Traction Mechanical 12/03/2019 12:00:00 AM EDT [facility] ([facility]) THERAPEUTIC PX 1/> AREAS EACH 15 MIN EXERCISES 12:00:00 AM EDT [facility] ([facility] ) MANUAL THERAPY TQS 1/> REGIONS EACH 15 MINUTES 12:00:00 AM EDT [facility] ([facility] ) Traction Mechanical 12/01/2019 12:00:00 AM EDT [facility] ([facility] ) THERAPEUTIC PX 1/> AREAS EACH 15 MIN EXERCISES 12:00:00 AM EDT [facility] ([facility]) MANUAL THERAPY TQS 1/> REGIONS EACH 15 MINUTES 12:00:00 AM EDT [facility] ([facility] ) MANUAL THERAPY TQS 1/> REGIONS EACH 15 MINUTES 12:00:00 AM EDT [facility] ([facility]) THERAPEUTIC PX 1/> AREAS EACH 15 MIN EXERCISES 12:00:00 AM EDT [facility] ([facility] ) Traction Mechanical 11/26/2019 12:00:00 AM EDT [facility] ([facility]) Traction Mechanical 11/24/2019 12:00:00 AM EDT [facility] ([facility]) THERAPEUTIC PX 1/> AREAS EACH 15 MIN EXERCISES 12:00:00 AM EDT [facility] ([facility] ) MANUAL THERAPY TQS 1/> REGIONS EACH 15 MINUTES 12:00:00 AM EDT [facility] ([facility]) Traction Mechanical 11/19/2019 12:00:00 AM EDT [facility] ([facility]) THERAPEUTIC PX 1/> AREAS EACH 15 MIN EXERCISES 12:00:00 AM EDT [facility] ([facility] ) MANUAL THERAPY TQS 1/> REGIONS EACH 15 MINUTES 12:00:00 AM EDT [facility] ([facility] ) MANUAL THERAPY TQS 1/> REGIONS EACH 15 MINUTES 12:00:00 AM EDT [facility] ([facility] ) THERAPEUTIC PX 1/> AREAS EACH 15 MIN EXERCISES 12:00:00 AM EDT [facility] ([facility] ) Traction Mechanical 11/17/2019 12:00:00 AM EDT [facility] ([facility] ) Traction Mechanical 11/05/2019 12:00:00 AM EDT [facility] ([facility] ) THERAPEUTIC PX 1/> AREAS EACH 15 MIN EXERCISES 12:00:00 AM EDT [facility] ([facility] ) MANUAL THERAPY TQS 1/> REGIONS EACH 15 MINUTES 12:00:00 AM EDT [facility] ([facility] ) Traction Mechanical 11/03/2019 12:00:00 AM EDT [facility] ([facility] ) THERAPEUTIC PX 1/> AREAS EACH 15 MIN EXERCISES 12:00:00 AM EDT [facility] ([facility] ) MANUAL THERAPY TQS 1/> REGIONS EACH 15 MINUTES 12:00:00 AM EDT [facility] ([facility] ) MANUAL THERAPY TQS 1/> REGIONS EACH 15 MINUTES 12:00:00 AM EDT [facility] ([facility] ) THERAPEUTIC PX 1/> AREAS EACH 15 MIN EXERCISES 12:00:00 AM EDT [facility] ([facility] ) Traction Mechanical 10/28/2019 12:00:00 AM EDT [facility] ([facility] ) Traction Mechanical 10/22/2019 12:00:00 AM EDT [facility] ([facility]) THERAPEUTIC PX 1/> AREAS EACH 15 MIN EXERCISES 12:00:00 AM EDT [facility] ([facility]) MANUAL THERAPY TQS 1/> REGIONS EACH 15 MINUTES 12:00:00 AM EDT [facility] ([facility] ) Traction Mechanical 10/20/2019 12:00:00 AM EDT [facility] ([facility] ) THERAPEUTIC PX 1/> AREAS EACH 15 MIN EXERCISES 07/14/2 020 12:00:00 AM EDT [facility] ([facility] ) MANUAL THERAPY TQS 1/> REGIONS EACH 15 MINUTES 020 12:00:00 AM EDT [facility] ([facility] ) MANUAL THERAPY TQS 1/> REGIONS EACH 15 MINUTES 020 12:00:00 AM EDT [facility] ([facility] ) Physical Therapy Eval - Low Complexity 10/01/2019 12:0 0:00 AM EDT [facility] ([facility]) Results ID Date Data Source [id number] 12/03/2019 09:33:00 AM EDT [facility] ([facility] Name Value Range Interpretation Code Description Data Geena rce(s) Supporting Document(s) Creatinine [Mass/volume] in Serum or Plasma 1.01 mg/dL 0.76-1.27 [facility] ([facility] A courtesy copy of this report has been sent to the patient, Urea nitrogen [Mass/volume] in Serum or Plasma 11 mg/dL 6-24 [facility] ([facility] A courtesy copy of this report has been sent to the patient, Glucose [Mass/volume] in Serum or Plasma 101 mg/dL 65-99 [facility] ([facility] A courtesy copy of this report has been sent to the patient, Sodium [Moles/volume] in Serum or Plasma 140 mmol/L 134-144 [facility] ([facility] A courtesy copy of this report has been sent to the patient, Urea nitrogen/Creatinine [Mass Ratio] in Serum or Plasma 11 9 -20 [facility] ([facility] A courtesy copy of this report has been sent to the patient, eGFR If Africn Am 100 mL/min/1.73 [facility] ([facility] A courtesy copy of this report has been sent to the patient, eGFR If NonAfricn Am 86 mL/min/1.73 [facility] ([facility] A courtesy copy of this report has been sent to the patient, Potassium [Moles/volume] in Serum or Plasma 4.6 mmol/L 3.5-5.2 [facility] ([facility] A courtesy copy of this report has been sent to the patient, Carbon dioxide, total [Moles/volume] in Serum or Plasma 26 mmol/L 20 -29 [facility] ([facility] A courtesy copy of this report has been sent to the patient, Calcium [Mass/volume] in Serum or Plasma 9.6 mg/dL 8.7-10.2 [facility] ([facility] A courtesy copy of this report has been sent to the patient, Protein, Total 7.3 g/dL 6.0-8.5 [facility] ([facility] A courtesy copy of this report has been sent to the patient, Albumin/Globulin [Mass Ratio] in Serum or Plasma 1.8 1.2-2.2 [facility] ([facility] A courtesy copy of this report has been sent to the patient, Globulin [Mass/volume] in Serum by calculation 2.6 g/dL 1.5-4.5 [facility] ([facility] A courtesy copy of this report has been sent to the patient, Albumin [Mass/volume] in Serum or Plasma 4.7 g/dL 4.0-5.0 [facility] ([facility] A courtesy copy of this report has been sent to the patient, Aspartate aminotransferase [Enzymatic activity/volume] in Serum or Plasma 25 IU/L 0-40 [facility] ([facility] A courtesy copy of this report has been sent to the patient, Bilirubin.total [Mass/volume] in Serum or Plasma 0.4 mg/dL 0.0-1.2 [facility] ([facility] A courtesy copy of this report has been sent to the patient, Alkaline phosphatase [Enzymatic activity/volume] in Serum or Plasma 87 IU/L 39-117 [facility] ([facility] A courtesy copy of this report has been sent to the patient, Chloride [Moles/volume] in Serum or Plasma 102 mmol/L 96-106 [facility] ([facility] A courtesy copy of this report has been sent to the patient, Alanine aminotransferase [Enzymatic activity/volume] in Seru m or Plasma 30 IU/L 0-44 [facility] ([facility] A courtesy copy of this report has been sent to the patient, ID Date Data Source [id number] 12/03/2019 09:33:00 AM EDT [facility] ([facility] Name Value Range Interpretation Code Description Data Geena rce(s) Supporting Document(s) Cholesterol [Mass/volume] in Serum or Plasma 252 mg/dL 100-199 [facility] ([facility] A courtesy copy of this report has been sent to the patient, Triglyceride [Mass/volume] in Serum or Plasma 246 mg/dL 0-149 [facility] ([facility] A courtesy copy of this report has been sent to the patient, Cholesterol in HDL [Mass/volume] in Serum or Plasma 45 mg/dL [facility] ([facility] A courtesy copy of this report has been sent to the patient, Cholesterol in VLDL [Mass/volume] in Serum or Plasma by calc ulation 49 mg/dL 5-40 [facility] ([facility] A courtesy copy of this report has been sent to the patient, Cholesterol in LDL [Mass/volume] in Serum or Plasma by calcu lation 158 mg/dL 0-99 [facility] ([facility] A courtesy copy of this report has been sent to the patient, Comment: Laboratory test result [facility] ([facility] A courtesy copy of this report has been sent to the patient, ID Date Data Source [id number] 12/03/2019 09:33:00 AM EDT [facility] ([facility] Name Value Range Interpretation Code Description Data Geena rce(s) Supporting Document(s) Leukocytes [#/volume] in Blood by Automated count 5.2 x10E3/uL 3.4-10 .8 [facility] ([facility] A courtesy copy of this report has been sent to the patient, Erythrocytes [#/volume] in Blood by Automated count 5.11 x10E6/uL 4.1 4-5.80 [facility] ([facility] A courtesy copy of this report has been sent to the patient, Hematocrit [Volume Fraction] of Blood by Automated count 46.9 % 3 7.5-51.0 [facility] ([facility] A courtesy copy of this report has been sent to the patient, Hemoglobin [Mass/volume] in Blood 15.8 g/dL 13.0-17.7 [facility] ([facility] A courtesy copy of this report has been sent to the patient, Erythrocyte mean corpuscular volume [Entitic volume] by Auto mated count 92 fL 79-97 [facility] ([facility] A courtesy copy of this report has been sent to the patient, Erythrocyte mean corpuscular hemoglobin [Entitic mass] by Automated count 30.9 pg 26.6-33.0 [facility] ([facility] A courtesy copy of this report has been sent to the patient, Erythrocyte mean corpuscular hemoglobin concentration [Mass/volume] by Automated count 33.7 g/dL 31.5-35.7 [facility] A courtesy copy of this report has been sent to the patient, Platelets [#/volume] in Blood by Automated count 271 x10E3/uL 150-450 [facility] ([facility] A courtesy copy of this report has been sent to the patient, Neutrophils 56 % [facility] A courtesy copy of this report has been sent to the patient, Erythrocyte distribution width [Ratio] by Automated count 12.8 % 11.6-15.4 [facility] ([facility] A courtesy copy of this report has been sent to the patient, Monocytes/100 leukocytes in Blood by Automated count 8 % [facility] A courtesy copy of this report has been sent to the patient, Lymphocytes/100 leukocytes in Blood by Automated count 30 % [facility] A courtesy copy of this report has been sent to the patient, Eosinophils/100 leukocytes in Blood by Automated count 4 % [facility] A courtesy copy of this report has been sent to the patient, Basophils/100 leukocytes in Blood by Automated count 2 % [facility] A courtesy copy of this report has been sent to the patient, Lymphocytes [#/volume] in Blood 1.6 x10E3/uL 0.7-3.1 [facility] ([facility] A courtesy copy of this report has been sent to the patient, Immature cells [#/volume] in Blood Laboratory test result [facility] ([facility] A courtesy copy of this report has been sent to the patient, Neutrophils [#/volume] in Blood by Automated count 2.9 x10E3/uL 1.4-7 .0 [facility] ([facility] A courtesy copy of this report has been sent to the patient, Monocytes [#/volume] in Blood 0.4 x10E3/uL 0.1-0.9 [facility] ([facility] A courtesy copy of this report has been sent to the patient, Basophils [#/volume] in Blood by Automated count 0.1 x10E3/uL 0.0-0.2 [facility] ([facility] A courtesy copy of this report has been sent to the patient, Immature granulocytes/100 leukocytes in Blood by Automated count 0 % [facility] A courtesy copy of this report has been sent to the patient, Eosinophils [#/volume] in Blood by Automated count 0.2 x10E3/uL 0.0-0 .4 [facility] ([facility] A courtesy copy of this report has been sent to the patient, Immature granulocytes [#/volume] in Blood by Automated count 0.0 x10E3/uL 0.0-0.1 [facility] ([facility] A courtesy copy of this report has been sent to the patient, Nucleated erythrocytes/100 leukocytes [Ratio] in Blood by Automated count Laboratory test result [facility] A courtesy copy of this report has been sent to the patient, Morphology [Interpretation] in Blood Narrative Laboratory test result [facility] ([facility] A courtesy copy of this report has been sent to the patient, ID Date Data Source [id number] 12/04/2019 04:05:00 AM EDT [facility] Name Value Range Interpretation Code Description Data Geena rce(s) Supporting Document(s) WBC 5.2 x10E3/uL 3.4-10.8 [facility] RBC 5.11 x10E6/uL 4.14-5.80 [facility] Hemoglobin 15.8 g/dL 13.0-17.7 [facility] Hematocrit 46.9 % 37.5-51.0 [facility] MCV 92 fL 79-97 [facility] MCH 30.9 pg 26.6-33.0 [facility] MCHC 33.7 g/dL 31.5-35.7 [facility] RDW 12.8 % 11.6-15.4 [facility] Platelets 271 x10E3/uL 150-450 [facility] Neutrophils 56 % Not Estab. [facility] Lymphs 30 % Not Estab. [facility] Monocytes 8 % Not Estab. [facility] Eos 4 % Not Estab. [facility] Basos 2 % Not Estab. [facility] Neutrophils (Absolute) 2.9 x10E3/uL 1.4-7.0 [facility] Lymphs (Absolute) 1.6 x10E3/uL 0.7-3.1 [facility] Monocytes(Absolute) 0.4 x10E3/uL 0.1-0.9 [facility] Eos (Absolute) 0.2 x10E3/uL 0.0-0.4 [facility] Baso (Absolute) 0.1 x10E3/uL 0.0-0.2 [facility] Immature Granulocytes 0 % Not Estab. [facility] Immature Grans (Abs) 0.0 x10E3/uL 0.0-0.1 [facility] ID Date Data Source [id number] 12/04/2019 06:06:00 AM EDT [facility] Name Value Range Interpretation Code Description Data Geena rce(s) Supporting Document(s) Glucose 101 mg/dL 65-99 Above high normal [facility] BUN 11 mg/dL 6-24 [facility] Creatinine 1.01 mg/dL 0.76-1.27 [facility] eGFR If NonAfricn Am 86 mL/min/1.73 >59 [facility] eGFR If Africn Am 100 mL/min/1.73 >59 [facility] BUN/Creatinine Ratio 11 9-20 [facility] Sodium 140 mmol/L 134-144 [facility] Potassium 4.6 mmol/L 3.5-5.2 [facility] Chloride 102 mmol/L 96-106 [facility] Carbon Dioxide, Total 26 mmol/L 20-29 [facility] Calcium 9.6 mg/dL 8.7-10.2 [facility] Protein, Total 7.3 g/dL 6.0-8.5 [facility] Albumin 4.7 g/dL 4.0-5.0 [facility] Globulin, Total 2.6 g/dL 1.5-4.5 [facility] A/G Ratio 1.8 1.2-2.2 [facility] Bilirubin, Total 0.4 mg/dL 0.0-1.2 [facility] Alkaline Phosphatase 87 IU/L 39-117 [facility] AST (SGOT) 25 IU/L 0-40 [facility] ALT (SGPT) 30 IU/L 0-44 [facility] ID Date Data Source [id number] 12/04/2019 06:06:00 AM EDT [facility] Name Value Range Interpretation Code Description Data Geena rce(s) Supporting Document(s) Cholesterol, Total 252 mg/dL 100-199 Above high normal [facility] Triglycerides 246 mg/dL 0-149 Above high normal [facility] HDL Cholesterol 45 mg/dL >39 [facility] VLDL Cholesterol Thaddeus 49 mg/dL 5-40 Above high normal [facility] LDL Cholesterol Calc 158 mg/dL 0-99 Above high normal [facility] Effective December 07, 2019, [facility] is implementing an improvedequation to calculate Low Density Lipoprotein Cholesterol (LDL-C)concentrations, to be used in all lipid panels that report calculatedLDL-C. This equation was developed through a collaboration with [facility] ([facility]).[1] The NIHcalculation overcomes the limitations of the existing FriedewaldLDL-C equation and performs equally well in both fasting andnon- fasting individuals.1. Reinaldo M, Vera C, Neeru Q, et al. A new equation forcalculation of low-density lipoprotein cholesterol in patients withn ormolipidemia and/or hypertriglyceridemia. JORJE Cardiol.2019Jun 03. doi:10.1001/jamacardio.2020.0013 ID Date Data Source [id number] 10/13/2019 12:00:00 AM EDT [facility] Aracelis GONZALES Patient Name: JOEL [id number] [facility] Date [facility] 1970[facility] Date of Exam: 10/13/2019[place], [place] [id number]#: Fax: [id number] EXAM: MRI LUMBAR SPINE WITHOUT CONTRASTCLINICAL INFORMATION: Back pain. Stenosis or HNP.COMPARISON: X-ray 08/27/2019.TECHNIQUE: Sagittal T1, T2 and T2 STIR images with axial T1 and B2pifrumxqv angled through the discs of L1- 2 through L5-S1.FINDINGS: Normal lordosis is slightly reduced. Vertebral body heights areintact. There is a hemangioma in the central portion of the L3 vertebralbody and a small one at L1 posteriorly. Discogenic changes versus smallhemangioma posteriorly and inferiorly at L5. Disc height is slightlydecreased at L4-5 with the other disc spaces maintained. There is loss ofdisc water at L2-3 through L5-S1 relatively sparing L1-2 and T12-L1.Conus terminates at upper aspect L1. The T12-L1 and L1-2 levels show nospinal or foraminal stenosis.At L2-3 there is a broad based disc bulge with some mild ligamentum andfacet hypertrophic change. This does not cause any significant spinalstenosis. The foramina shows some loss of perineural fat without nerve rootcompression. At L3-4 mild broad based disc bulge, flattening the ventralthecal sac and with ligamentum and facet hypertrophic changes present.There is some lateral recess stenosis is suggested. The foramina show againsome loss of perineural fat but no nerve root compression.At L4-5 there is a broad based disc bulge with annular tear centrally, adisc protrusion extending into the left foramen and bulge into the right.This flattens the ventral thecal sac and there is more significant lateralrecess stenosis at this level with ligamentum and facet hypertrophic changecausing moderate central canal stenosis. There is bilateral foraminalencroachment with mild nerve root compression on the left greater thanright.At L5-S1 broad based disc bulge with a central small disc protrusion doesnot abut or displace the S1 nerve roots. Central canal shows mild stenosisof its cross sectional area but the foramina showed adequate. There is lossof perineural fat without definite nerve root compression.IMPRESSION:1. Multilevel spondylosis with degenerative disc disease and spinalstenosis at L4-5 with central annular tear and protrusion laterally intothe foramen combined factors causing central canal stenosis with lateralrecess stenosis and foraminal encroachment with loss of perineural fat andmild nerve root impingement.2. Spondylosis at L5-S1 with small central disc protrusion with mildcentral canal stenosis into the foramina showing loss of perineural fatwithout definite nerve root compression.3. L3-4 level with combined factors causing lateral recess stenosis. Thereis some central canal stenosis, mild to moderate with the foramina showingloss of perineural fat without nerve root compression.4. Spondylosis at L2-3 without significant spinal or foraminal stenosis.Levels above intact.Accredited by the [employer] in MR.Anderson Diamond, ANDREINA/daniellemTjulio oneill for referring LIONEL RAZO to our office. Electronically Signed - ANDERSON DIAMOND MD 10/16/19 10:26 Name Value Range Interpretation Code Description Data Geena rce(s) Supporting Document(s) Procedure Social History Code Duration Value Status Description Data Source(s ) Smoking 05/03/2020 12:00:00 AM EST Patient has never smoked co mpleted Patient has never smoked [facility] ([facility]) Smoking 12/01/2019 12:00:00 AM EDT Never Smoked Cigarettes com pleted Never Smoked Cigarettes [facility] ([facility] Vital Signs ID Date Data Source UNK Name Value Range Interpretation Code Description Data Source(s) Body weight 262.00 [lb_av] 262.00 [lb_av] [facility] ([facility]) Body temperature 99.3 [degF] 99.3 [degF] [facility] Oxygen saturation in Arterial blood by Pulse oximetry 96 % 96 % [facility] ([facility] Respiratory rate 23 /min 23 /min [facility] ( [facility]) Heart rate 96 /min 96 /min [facility] ([facility], [facility]) Diastolic blood pressure 81 mm[Hg] 81 mm[Hg] [facility] ([facility]) Systolic blood pressure 132 mm[Hg] 132 mm[Hg] [facility] ([facility]) Body weight 262.00 [lb_av] 262.00 [lb_av] [facility] ([facility]) Body temperature 97.7 [degF] 97.7 [degF] [facility] ([facility]) Oxygen saturation in Arterial blood by Pulse oximetry 98 % 98 % [facility] ([facility]) Respiratory rate 16 /min 16 /min [facility] ( [facility]) Heart rate 77 /min 77 /min [facility] ([facility]) Diastolic blood pressure 89 mm[Hg] 89 mm[Hg] [facility] ([facility]) Systolic blood pressure 129 mm[Hg] 129 mm[Hg] [facility] ([facility]) Body mass index (BMI) [Ratio] 37.4 kg/m2 37.4 k g/m2 [facility] Oxygen saturation in Arterial blood by Pulse oximetry 96 % 96 % [facility] Body weight 262.38 [lb_av] 262.38 [lb_av] [facility] ([facility] Body height 70.25 [in_i] 70.25 [in_i] [facility] ([facility] 5'10.25" Respiratory rate 16 /min 16 /min [facility] ( [facility] Body temperature 98.0 [degF] 98.0 [degF] [facility] Heart rate 59 /min 59 /min [facility] ([facility] Diastolic blood pressure 78 mm[Hg] 78 mm[Hg] [facility] Systolic blood pressure 127 mm[Hg] 127 mm[Hg] [facility] ([facility] Body mass index (BMI) [Ratio] 35.9 kg/m2 35.9 k g/m2 [facility] ([facility] Body weight 265.00 [lb_av] 265.00 [lb_av] [facility] T ([facility] ) Body height 72 [in_i] 72 [in_i] [facility] ([facility] ) 6'0" Body temperature 97.8 [degF] 97.8 [degF] [facility] ([facility] )
--- OUTSIDE RECORDS SUMMARY | 2020-05-04 15:22 | CCD | Continuity of Care Document ---
Author Author Domo PHAN ME Organization Unknown Address [address] [place] [address] [place] [address] Phone [phone] Care Team Providers Care Erisa Attorney Name Role Phone Bisi SmileyM [phone] Problems Description No Information Available Social History [...]
--- OUTSIDE RECORDS SUMMARY | 2020-05-04 15:22 | CCD | Continuity of Care Document ---
Author Author Domo BYERS Organization Unknown Address [address] [place] [address] [place] [address] Phone [phone] Care Team Providers Care Payroll And Benefits Analyst Name Role Phone Bisi Smiley AUTM [phone] Krishna Dennis Arnulfo AUTM [phone] Problems Description No Information Available Social History [...] 1 Results Description No Information Available Procedures Description [...]
[2020-05-04] MEDS ORDERED: D31000TA2 PO (15:49)
[2020-05-04] MEDS ORDERED: ATOR80TA59 PO (15:49)
[2020-05-04] MEDS ORDERED: LISI-538 PO (15:49)
[2020-05-04] MEDS ORDERED: ACETAMINOPHEN TAB 650MG DOSE (2X325MG) PO ONE (16:30)
--- NOTE | 2020-05-04 16:31 | REP ---
INDICATION: DYSPNEA/COUGH. COMPARISON: 09/21/2015 the latest prior also portable TECHNIQUE: Portable FINDINGS: The technique utilized in obtaining the radiograph has magnified the cardiac silhouette and accentuated the interstitial markings. The cardiomediastinal silhouette is unchanged. The heart is not enlarged. There is an abnormal patchy opacity in the right upper lobe. This represents a change from the prior exam. Pleural angles are sharp. There is no significant change in the osseous structures. IMPRESSION: Right upper lobe pneumonia <Electronically signed by Juancho Culver > 05/04/20 1405
--- OUTSIDE RECORDS SUMMARY | 2020-05-04 16:33 | CCD ---
Author Author [facility] Organization [facility] Address Unknown Phone Unavailable Care Team Providers Care Cctv Technician Name Role Phone Scordo, M Bisi PA [...] MCELHERAN, ARACELIS PA Unavailable Unavailable Pleskach, Carley MANAGER OF BUSINESS OPERATIONS Unavailable Unavailable Pleskach, Carley MANAGER OF BUSINESS OPERATIONS Unavailable Unavailable Pleskach, Carley MANAGER OF BUSINESS OPERATIONS Unavailable Unavailable Pleskach, Carley MANAGER OF BUSINESS OPERATIONS Unavailable Unavailable Pleskach, Carley MANAGER OF BUSINESS OPERATIONS Unavailable Unavailable Pleskach, Carley MANAGER OF BUSINESS OPERATIONS Unavailable Unavailable Pleskach, Carley MANAGER OF BUSINESS OPERATIONS Unavailable Unavailable Pleskach, Carley MANAGER OF BUSINESS OPERATIONS Unavailable Unavailable Pleskach, Carley MANAGER OF BUSINESS OPERATIONS Unavailable Unavailable Pleskach, Carley MANAGER OF BUSINESS OPERATIONS Unavailable Unavailable Pleskach, Carley MANAGER OF BUSINESS OPERATIONS Unavailable Unavailable Pleskach, Carley MANAGER OF BUSINESS OPERATIONS Unavailable Unavailable Pleskach, Carley MANAGER OF BUSINESS OPERATIONS Unavailable Unavailable Pleskach, Carley MANAGER OF BUSINESS OPERATIONS Unavailable Unavailable Pleskach, Carley MANAGER OF BUSINESS OPERATIONS Unavailable Unavailable Pleskach, Carley MANAGER OF BUSINESS OPERATIONS Unavailable Unavailable Pleskach, Carley MANAGER OF BUSINESS OPERATIONS Unavailable Unavailable Pleskach, Carley MANAGER OF BUSINESS OPERATIONS Unavailable Unavailable Pleskach, Carley MANAGER OF BUSINESS OPERATIONS Unavailable Unavailable Pleskach, Carley MANAGER OF BUSINESS OPERATIONS Unavailable Unavailable Pleskach, Carley MANAGER OF BUSINESS OPERATIONS Unavailable Unavailable Pleskach, Carley MANAGER OF BUSINESS OPERATIONS Unavailable Unavailable Pleskach, Carley MANAGER OF BUSINESS OPERATIONS Unavailable Unavailable Pleskach, Carley MANAGER OF BUSINESS OPERATIONS Unavailable Unavailable Pleskach, Carley MANAGER OF BUSINESS OPERATIONS Unavailable Unavailable Pleskach, Carley MANAGER OF BUSINESS OPERATIONS Unavailable Unavailable Pleskach, Carley MANAGER OF BUSINESS OPERATIONS Unavailable Unavailable Pleskach, Carley MANAGER OF BUSINESS OPERATIONS Unavailable Unavailable Lawler, Alley Alicia PA Unavailable [...] Mera BENAVIDES Unavailable Unavailable Curt, A Mera BENAVIEDS Unavailable Unavailable Curt, A Mera BENAVIDES Unavailable [...] is protected by Article 27-F of the [facility] Public Health law. If you continue you may have access to information: Regarding HIV / AIDS; Provided by facilities licensed or operated by the [facility] Office of Mental Health; or Provided by the [facility] Office for People With Developmental Disabilities. If such information is present, then the following [facility] mandated warning applies: This information has been [...] law may result in a fine or nursing home sentence or both. A general authorization for the release of medical or other information is NOT sufficient authorization for further disc losure. Allergies and Adverse Reactions Type Description Substance Reaction Status Data Source(s ) Drug Allergy NKDA NKDA [facility] ([facility], [facility]) Family History Family Member Name Family Member Gender Family Member Status Date o f Status Description Data Source(s) Unknown Unknown Problem [facility] ([facility], [facility]) mother,sisters x2 Unknown Unknown Problem [facility] ([facility] maternal side Unknown Male Problem [facility] ([facility], ) () - BRAIN Encounters Encounter Providers Location Date Indications Data Source(s ) Outpatient Attender: Alicia Gamboa Prim selvin 05/03/2020 12:20:00 PM EST [facility] ([facility], [facility]) Outpatient Attender: ARACELIS Gamboa Prim selvin 04/29/2020 07:00:00 AM EST [facility] ([facility], [facility]) Outpatient Attender: Carley Palomares [facility] Main Office 12/01/2019 1 0:00:00 AM EDT [facility] ([facility] Outpatient Attender: ARACELIS GONZALES Physical Therapy 10/28/2019 09:45:00 AM EDT [facility] ([facility] ) Outpatient Referrer: ARACELIS GONZALES 09/29/2019 01:21 :00 PM EDT [facility] Radiology Imaging Outpatient Referrer: Mera Elias MD 09/29/2019 01:19:00 PM EDT [facility] Radiology Imaging Outpatient Referrer: Mera Elias MD 09/29/2019 01:19:00 PM EDT [facility] Radiology Imaging Outpatient Attender: ARACELIS GONZALES Physical Therapy 09/23/2019 10:00:00 AM EDT MED[facility] ([facility]) Outpatient Attender: Bisi GONZALES Main Office 08/25/2019 03:15:00 PM EDT [facility] ([facility] Medications Medication Brand Name Start Date Product Form Dose Route Admi nistrative Instructions Pharmacy Instructions Status Indications Reaction Description Data Source(s) Methylprednisolone Sodium Succinate To 125 MG 05/03/2020 1 2:00:00 AM EST completed [facility] ([facility]) Medication administered onsite Azithromycin 250 MG Oral Tablet Azithromycin 04/29/2020 12:00:00 AM EST active [facility] ([facility]) Prednisone 20 MG Oral Tablet Prednisone 04/29/2020 12:00:00 AM EST active [facility] ([facility]) atorvastatin 80 MG Oral Tablet Atorvastatin Calcium 12/04/2019 1 2:00:00 AM EDT ORAL active [facility] ( [facility] gabapentin 100 MG Oral Capsule Gabapentin 09/23/2019 12:00:00 AM EDT ORAL active [facility] ([facility]) Methylprednisolone 4 MG Oral Tablet [Medrol] Medrol 12:00:00 AM EDT active MED[facility] ( [facility]) meloxicam 15 MG Oral Tablet Meloxicam 08/25/2019 12:00:00 AM EDT ORAL active [facility] ([facility] meloxicam 15 MG Oral Tablet Meloxicam 08/25/2019 12:00:00 AM EDT ORAL active [facility] ([facility]) Insurance Providers Payer name Policy type / Coverage type Policy ID Covered green party ID Covered green party's relationship to sellers Policy Sellers Plan Information [facility] O [id number] S [id number] [facility] HEALTHCARE [id number] SP [id number] [facility] Commercial [id number] Self [id number] [facility] Commercial [id number] Self [id number] [place] Commercial [id number] Self 00 [id number] [place] Commercial [id number] Self [id number] [place] Commercial [id number] Self [id number] [place] Commercial [id number] Self 00 [id number] [place] Commercial [id number] Self 00 [id number] [employer] [facility] [place] Health Maintenance Organization (HMO) [id number] Self [id number] [facility] HEALTHCARE [id number] SP [id number] [facility] [place] Commercial [id number] Self 00 [id number] [facility] Commercial [id number] Self [id number] [place] Commercial Self [facility] Commercial Self [id number] Problems, Conditions, and Diagnoses Code Display Name Description Problem Type Effective Dates Data Source(s) 66577876 Allergic rhinitis Allergic rhinitis Problem 12/01/2019 12:00:00 AM EDT MED[facility] ([facility] [id number] Essential hypertension Essential hypertension Problem 12/01/2019 12:00:00 AM EDT [facility] ([facility] [id number] Obstructive sleep apnea syndrome Obstructive sle ep apnea syndrome Problem 12/01/2019 12:00:00 AM EDT [facility] ([facility] [id number] Adjustment disorder with depressed mood Adjustment disorder with depressed mood Problem 12/01/2019 12:00:00 AM EDT [facility] ([facility] Surgeries/Procedures Procedure Description Date Indications Data Source(s) Therapeutic, Prophylactic Or Diagnostic Injection Subq/Im 05/03/2020 12:00:00 AM EST [facility] ([facility] Traction Mechanical 12/08/2019 12:00:00 AM EDT [facility] ([facility]) MANUAL THERAPY TQS 1/> REGIONS EACH 15 MINUTES 12:00:00 AM EDT [facility] ([facility]) Re-Eval Of PT Established Plan Of Care 20Mins Face To Face P T/Fam 12/08/2019 12:00:00 AM EDT [facility] ([facility]) Traction Mechanical 12/03/2019 12:00:00 AM EDT [facility] ([facility]) THERAPEUTIC PX 1/> AREAS EACH 15 MIN EXERCISES 12:00:00 AM EDT [facility] ([facility] ) MANUAL THERAPY TQS 1/> REGIONS EACH 15 MINUTES 12:00:00 AM EDT [facility] ([facility] ) Traction Mechanical 12/01/2019 12:00:00 AM EDT [facility] ([facility] ) THERAPEUTIC PX 1/> AREAS EACH 15 MIN EXERCISES 12:00:00 AM EDT [facility] ([facility]) MANUAL THERAPY TQS 1/> REGIONS EACH 15 MINUTES 12:00:00 AM EDT [facility] ([facility] ) MANUAL THERAPY TQS 1/> REGIONS EACH 15 MINUTES 12:00:00 AM EDT [facility] ([facility]) THERAPEUTIC PX 1/> AREAS EACH 15 MIN EXERCISES 12:00:00 AM EDT [facility] ([facility] ) Traction Mechanical 11/26/2019 12:00:00 AM EDT [facility] ([facility]) Traction Mechanical 11/24/2019 12:00:00 AM EDT [facility] ([facility]) THERAPEUTIC PX 1/> AREAS EACH 15 MIN EXERCISES 12:00:00 AM EDT [facility] ([facility] ) MANUAL THERAPY TQS 1/> REGIONS EACH 15 MINUTES 12:00:00 AM EDT [facility] ([facility]) Traction Mechanical 11/19/2019 12:00:00 AM EDT [facility] ([facility]) THERAPEUTIC PX 1/> AREAS EACH 15 MIN EXERCISES 12:00:00 AM EDT [facility] ([facility] ) MANUAL THERAPY TQS 1/> REGIONS EACH 15 MINUTES 12:00:00 AM EDT [facility] ([facility] ) MANUAL THERAPY TQS 1/> REGIONS EACH 15 MINUTES 12:00:00 AM EDT [facility] ([facility] ) THERAPEUTIC PX 1/> AREAS EACH 15 MIN EXERCISES 12:00:00 AM EDT [facility] ([facility] ) Traction Mechanical 11/17/2019 12:00:00 AM EDT [facility] ([facility] ) Traction Mechanical 11/05/2019 12:00:00 AM EDT [facility] ([facility] ) THERAPEUTIC PX 1/> AREAS EACH 15 MIN EXERCISES 12:00:00 AM EDT [facility] ([facility] ) MANUAL THERAPY TQS 1/> REGIONS EACH 15 MINUTES 12:00:00 AM EDT [facility] ([facility] ) Traction Mechanical 11/03/2019 12:00:00 AM EDT [facility] ([facility] ) THERAPEUTIC PX 1/> AREAS EACH 15 MIN EXERCISES 12:00:00 AM EDT [facility] ([facility] ) MANUAL THERAPY TQS 1/> REGIONS EACH 15 MINUTES 12:00:00 AM EDT [facility] ([facility] ) MANUAL THERAPY TQS 1/> REGIONS EACH 15 MINUTES 12:00:00 AM EDT [facility] ([facility] ) THERAPEUTIC PX 1/> AREAS EACH 15 MIN EXERCISES 12:00:00 AM EDT [facility] ([facility] ) Traction Mechanical 10/28/2019 12:00:00 AM EDT [facility] ([facility] ) Traction Mechanical 10/22/2019 12:00:00 AM EDT [facility] ([facility]) THERAPEUTIC PX 1/> AREAS EACH 15 MIN EXERCISES 12:00:00 AM EDT [facility] ([facility]) MANUAL THERAPY TQS 1/> REGIONS EACH 15 MINUTES 12:00:00 AM EDT [facility] ([facility] ) Traction Mechanical 10/20/2019 12:00:00 AM EDT [facility] ([facility] ) THERAPEUTIC PX 1/> AREAS EACH 15 MIN EXERCISES 07/14/2 020 12:00:00 AM EDT [facility] ([facility] ) MANUAL THERAPY TQS 1/> REGIONS EACH 15 MINUTES 020 12:00:00 AM EDT [facility] ([facility] ) MANUAL THERAPY TQS 1/> REGIONS EACH 15 MINUTES 020 12:00:00 AM EDT [facility] ([facility] ) Physical Therapy Eval - Low Complexity 10/01/2019 12:0 0:00 AM EDT [facility] ([facility]) Results ID Date Data Source [id number] 12/03/2019 09:33:00 AM EDT [facility] ([facility] [...] to the patient, ID Date Data Source [id number] 12/03/2019 09:33:00 AM EDT [facility] ([facility] [...] to the patient, ID Date Data Source [id number] 12/03/2019 09:33:00 AM EDT [facility] ([facility] [...] to the patient, ID Date Data Source [id number] 12/04/2019 04:05:00 AM EDT [facility] Name Value [...] 0.0-0.1 [facility] ID Date Data Source [id number] 12/04/2019 06:06:00 AM EDT [facility] Name Value [...] IU/L 0-44 [facility] ID Date Data Source [id number] 12/04/2019 06:06:00 AM EDT [facility] Name Value [...] equation was developed through a collaboration with [facility] ([facility]).[1] The NIHcalculation overcomes the limitations of the existing FriedewaldLDL-C equation and performs equally well in both fasting andnon- fasting individuals.1. Reinaldo M, Vera C, Neeru Q, et al. A new equation forcalculation of low-density lipoprotein cholesterol in patients withn ormolipidemia and/or hypertriglyceridemia. JORJE Cardiol.2019Jun 03. doi:10.1001/[email or web address] ID Date Data Source [id number] 10/13/2019 12:00:00 AM EDT [facility] Imaging Aracelis GONZALES Patient Name: JOEL [id number] [facility] Date [facility] : 1970[facility] Date of Exam: 10/13/2019[place], [place] [address]MY#: Fax: [id number] EXAM: MRI LUMBAR SPINE WITHOUT CONTRASTCLINICAL INFORMATION: Back pain. Stenosis or HNP.COMPARISON: X-ray 08/27/2019.TECHNIQUE: Sagittal T1, T2 and T2 STIR images with axial T1 and S1qfsgyvemb angled through the discs of L1- 2 [...] or foraminal stenosis.Levels above intact.Accredited by the [employer] in MR.Anderson Diamond, ANDREINA/daniellemTjulio oneill for referring LIONEL RAZO to our office. Electronically Signed - ANDERSON DIAMOND MD 10/16/19 10:26 Name Value Range Interpretation Code Description Data Geena rce(s) Supporting Document(s) Procedure Social History Code Duration Value Status Description Data Source(s ) Smoking 05/03/2020 12:00:00 AM EST Patient has never smoked co mpleted Patient has never smoked [facility] ([facility], [facility]) Smoking 12/01/2019 12:00:00 AM EDT Never Smoked Cigarettes com pleted Never Smoked Cigarettes [facility] ([facility] Vital Signs ID Date Data Source UNK Name Value Range Interpretation Code Description Data Source(s) Body weight 262.00 [lb_av] 262.00 [lb_av] MEDEN T ([facility], [facility]) Body temperature 99.3 [degF] 99.3 [degF] [facility] Oxygen saturation in Arterial blood by Pulse oximetry 96 % 96 % [facility] ([facility]) Respiratory rate 23 /min 23 /min [facility] ( [facility], [facility]) Heart rate 96 /min 96 /min [facility] ([facility], [facility]) Diastolic blood pressure 81 mm[Hg] 81 mm[Hg] [facility] ([facility], [facility]) Systolic blood pressure 132 mm[Hg] 132 mm[Hg] M EDENT ([facility], [facility]) Body weight 262.00 [lb_av] 262.00 [lb_av] MEDEN T ([facility], [facility]) Body temperature 97.7 [degF] 97.7 [degF] [facility] ([facility], [facility]) Oxygen saturation in Arterial blood by Pulse oximetry 98 % 98 % [facility] ([facility], [facility]) Respiratory rate 16 /min 16 /min [facility] ( [facility], [facility]) Heart rate 77 /min 77 /min [facility] ([facility], [facility]) Diastolic blood pressure 89 mm[Hg] 89 mm[Hg] [facility] ([facility]) Systolic blood pressure 129 mm[Hg] 129 mm[Hg] M EDENT ([facility]) Body mass index (BMI) [Ratio] 37.4 kg/m2 [...] [Ratio] 35.9 kg/m2 35.9 k g/m2 [facility] ([facility] ) Body weight 265.00 [lb_av] 265.00 [lb_av] MEDEN T ([facility] ) Body height 72 [in_i] 72 [in_i] [facility] ([facility] 6'0" Body temperature 97.8 [degF] 97.8 [degF] [facility] ([facility] )
[2020-05-04] MEDS ORDERED: cefTRIAXone SOD 2 GM in D5W MINI-BAG PLUS 50 ML IV ONE (17:15)
[2020-05-04] MEDS ORDERED: dexameTHASONE 20MG/5ML VIAL (J1100 PER 1MG) IV ONE (17:15)
[2020-05-04] MEDS ORDERED: AZITHROMYCIN INJ 500 MG, VIAL MATE ADAPTER 1 EACH in D5W 250 ML IV ONE (17:15)
[2020-05-04] MEDS: COMBIVENT RESPIMAT 100-20MCG INHALER 4GM INH SCH ×3 (17:36→18:06)
[2020-05-04 18:10] LABS: HEMATOCRIT 43.1 % (42.0-52.0); HEMOGLOBIN 14.5 g/dl (13.5-17.5); MEAN CORPUSCULAR HEMOGLOBIN 30.1 pg (27.0-33.0); MEAN CORPUSCULAR HGB CONC 33.6 g/dl (32.0-36.5); MEAN CORPUSCULAR VOLUME 89.6 fl (80.0-96.0); PLATELET COUNT, AUTOMATED 232 10^3/uL (150-450); RED BLOOD COUNT 4.81 10^6/uL (4.30-6.10); WHITE BLOOD COUNT 11.6 10^3/uL (4.0-10.0)
[2020-05-04] MEDS ORDERED: PROAAER10 INH (18:14)
[2020-05-04] MEDS ORDERED: SERT-138 PO (18:14)
[2020-05-04 18:22] LABS: INR 1.01; PROTHROMBIN TIME 13.5 SECONDS (12.5-14.3)
[2020-05-04 18:25] LABS: D-DIMER QUANT 846.45 ng/ml (<500)
[2020-05-04] MEDS ORDERED: ALBUTEROL SULFATE 2.5 MG/0.5 ML INH NEB SOLN INH PRN (18:30)
[2020-05-04 18:36] LABS: ALBUMIN 3.5 GM/DL (3.2-5.2); ALT/SGPT 46 U/L (12-78); BILIRUBIN,DIRECT < 0.1 MG/DL (0.0-0.2); BILIRUBIN,TOTAL 0.3 MG/DL (0.2-1.0); BLOOD UREA NITROGEN 17 MG/DL (7-18); C REACTIVE PROTEIN QUANTITATIV 3.67 MG/DL (0.00-0.30); CALCIUM LEVEL 8.7 MG/DL (8.5-10.1); CARBON DIOXIDE LEVEL 24 MEQ/L (21-32); CHLORIDE LEVEL 103 MEQ/L (98-107); CK-MB VALUE MASS < 1.0 NG/ML (<3.6); CPK CREATINE PHOSPHOKINASE 171 U/L (39-308); CREATININE FOR GFR 1.02 MG/DL (0.70-1.30); FERRITIN 607 NG/ML (26-388); GLOMERULAR FILTRATION RATE > 60.0 (>56); GLUCOSE, FASTING 127 MG/DL (70-100); LDH LACTATE DEHYDROGENASE 246 U/L (87-241); MB/CK RELATIVE INDEX 0.58 (< OR =4); NT-PRO BNP 51 PG/ML (<125); POTASSIUM SERUM 3.6 MEQ/L (3.5-5.1); SODIUM LEVEL 137 MEQ/L (136-145); THYROID STIMULATING HORMONE 0.557 uIU/ML (0.358-3.740); TOTAL PROTEIN 7.3 GM/DL (6.4-8.2); TROPONIN I < 0.02 NG/ML (< 0.10)
[2020-05-04] MEDS ORDERED: NS 1,000 ML IV SCH (19:00)
[2020-05-04 19:02] LABS: LYMPHOCYTES 5 % (16-44); MONOCYTES 2 % (0-5); NEUTROPHILS 89 % (28-66); PLATELET ESTIMATE NORMAL (NORMAL)
--- NOTE | 2020-05-04 19:02 | HPEPDOC ---
General Date of Admission May 04, 2020 Date of Service: May 04, 2020 Attending Physician: IVET ZARCO DO Chief Complaint The patient is a 50-year-old male admitted with a reason for visit of Diff B reathing. Source: Patient History of Present Illness Mr. Antunez is a 50 year old male with asthma here with progressively worsening chills, dyspnea, and cough, found to have CAP superimposed on COVID 19 infection. At work, there is about 20 people out due to COVID 19 infection or quarantine. He was feeling okay until 10 days ago. He started to have worsening dyspnea and nonproductive cough. He thought it was related to his asthma and did not think much of it. His symptoms started to worsen with chills and malaise, and he came into the ED. CXR in the ED demonstrated right upper lobe pneumonia. He also tested positive for COVID 19. He does have a leukocytosis of 11.6. He is hemodynamically stable. He has a high fever of 102.7. He was tachypneic initially with respiratory rate of 35 and tachycardic. When I saw him, he was breathing at room air but he had trouble completing sentences. He was gasping for air. Otherwise, lungs were diminished. No wheezing, but he had just completed a breathing treatment. He is a never smoker. Patient will be admitted for CAP superimposed on COVID 19 infection Home Medications Scheduled Atorvastatin Calcium (Atorvastatin Calcium) 80 Mg Tablet, 40 MG PO DAILY, (Reported) Bupropion HCl (Bupropion Xl) 300 Mg Tab, 300 MG PO DAILY, (Reported) Cholecalciferol (Vitamin D3) (Vitamin D3) 1,000 Unit Tablet, 1,000 UNITS PO DAILY, (Reported) Lisinopril (Lisinopril) 20 Mg Tablet, 10 MG PO DAILY, (Reported) Sertraline HCl (Sertraline HCl) 100 Mg Tablet, 150 MG PO DAILY, (Reported) Scheduled PRN Albuterol Sulfate (Proair Hfa) 8.5 Gm Hfa.aer.ad, 2 PUFF INH QID PRN for SOB/WHEEZING, (Reported) Allergies Coded Allergies: SEASONAL ALLERGIES (Verified Allergy, Intermediate, hives, sneezing , 12/25/18) Past Medical History Medical History 1. Asthma 2. Hyperlipidemia 3. Hypertension 4. Sleep apnea 5. GERD 6. Depression/Anxiety Surgical History 1. Tonsillectomy 2. Hernia repair 3. Left ankle surgery 4. Bilateral heel and knee surgery Family History Father: No known medical history Mother: HBP, asthma, allergies Social History * Smoker: non-smoker Alcohol: other (about 6 pack every 2 weeks. Last alcoholic drink was about 3 weeks ago) Drugs: denies A-FIB/CHADSVASC A-FIB History Current/History of A-Fib/PAF?: No Review of Systems Constitutional: Reports: Chills Eyes: Denies: Vision change ENT: Denies: Sore Throat Skin: Denies: Rash Pulmonary: Reports: Dyspnea, Cough (Dry), Pleuritic Chest Pain (chest tightness) Cardiovascular: Denies: Palpitations Gastrointestinal: Reports: Nausea (when cough too much), Diarrhea (a few days ago had 2 episodes of diarrhea); Denies: Abdominal Pain Genitourinary: Denies: Dysuria Hematologic: Denies: Bruising Neurological: Denies: Numbness Psych: Denies: Anxiety, Depression Physical Examination General Exam: Positive: Alert, Cooperative, Moderate Distress Eye Exam: Positive: EOMI; Negative: Sclera icteric ENT Exam: Positive: Atraumatic Neck Exam: Positive: Supple Chest Exam: Positive: Diminished Heart Exam: Positive: Tachycardic, Regular Rhythm Abdomen Exam: Positive: Normal bowel sounds, Soft; Negative: Tenderness Extremity Exam: Negative: Edema Neuro Exam: Negative: Normal Speech (Cannot complete sentences due to dyspnea) Psych Exam: Positive: Mental status NL Vital Signs Vital Signs Date Time Temp Pulse Resp B/P (MAP) Pulse Ox O2 Delivery O2 Flow Rate FiO2 05/04/20 18:07 108 05/04/20 18:06 20 05/04/20 16:04 05/04/20 15:33 102.7 95 05/04/20 15:11 Room Air Laboratory Data Labs 24H Laboratory Tests 2 05/04/20 15:48: Neutrophils (%) (Auto) , Nucleated Red Blood Cells % (auto) 0.0, Prothrombin Time 13.5, Prothromb Time International Ratio 1.01, D-Dimer, Quantitative 846.45H, Lactic Acid Level 1.6 CBC/BMP Laboratory Tests 05/04/20 15:48 Microbiology Microbiology 05/04/20 Respiratory Virus Panel (PCR) (ZULY) - Final, Complete SARS-CoV-2 (COVID 19) 05/04/20 Blood Culture, Received Pending Assessment/Plan Mr. Antunez is a 50 year old male with asthma here with progressively worsening chills, dyspnea, and cough, found to have CAP superimposed on COVID 19 infection. He does meet criteria for sepsis with 4/4 SIRS criteria (fever, leukocytosis, tachycardia, and tachypnea). He was given antibiotics in the ED. Will start on IVF. Plan / VTE VTE Prophylaxis Ordered?: Yes Plan Plan 1. CAP superimposed on COVID 19 infection -Right upper lobe pneumonia -No requiring oxygen, but appears very dyspneic -Ceftriaxone and Azithromycin -Pending sputum culture, blood culture, urinary legionella, and urinary streptococcus -Patient meets sepsis criteria (4/4 SIRS), will start on IVF 2. Asthma -Albuterol as needed -Decadron 6mg IV daily 3. Hypertension -Blood pressure stable -Continue lisinopril 4. Hyperlipidemia -Continue Atorvastatin 5. Anxiety/Depression -Continue bupropion and sertraline 6. DVT ppx -Lovenox IVET ZARCO DO May 04, 2020 19:02
--- NOTE | 2020-05-04 19:17 | ECGEPIP ---
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
--- OUTSIDE RECORDS SUMMARY | 2020-05-04 19:58 | CCD ---
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 Role Phone Scordo, M Bisi PA [...] MCELHERAN, ARACELIS PA Unavailable Unavailable Pleskach, Carley TRAVELING SALES EXECUTIVE Unavailable Unavailable Pleskach, Carley TRAVELING SALES EXECUTIVE Unavailable Unavailable Pleskach, Carley TRAVELING SALES EXECUTIVE Unavailable Unavailable Pleskach, Carley TRAVELING SALES EXECUTIVE Unavailable Unavailable Pleskach, Carley TRAVELING SALES EXECUTIVE Unavailable Unavailable Pleskach, Carley TRAVELING SALES EXECUTIVE Unavailable Unavailable Pleskach, Carley TRAVELING SALES EXECUTIVE Unavailable Unavailable Pleskach, Carley TRAVELING SALES EXECUTIVE Unavailable Unavailable Pleskach, Carley TRAVELING SALES EXECUTIVE Unavailable Unavailable Pleskach, Carley TRAVELING SALES EXECUTIVE Unavailable Unavailable Pleskach, Carley TRAVELING SALES EXECUTIVE Unavailable Unavailable Pleskach, Carley TRAVELING SALES EXECUTIVE Unavailable Unavailable Pleskach, Carley TRAVELING SALES EXECUTIVE Unavailable Unavailable Pleskach, Carley TRAVELING SALES EXECUTIVE Unavailable Unavailable Pleskach, Carley TRAVELING SALES EXECUTIVE Unavailable Unavailable Pleskach, Carley TRAVELING SALES EXECUTIVE Unavailable Unavailable Pleskach, Carley TRAVELING SALES EXECUTIVE Unavailable Unavailable Pleskach, Carley TRAVELING SALES EXECUTIVE Unavailable Unavailable Pleskach, Carley TRAVELING SALES EXECUTIVE Unavailable Unavailable Pleskach, Carley TRAVELING SALES EXECUTIVE Unavailable Unavailable Pleskach, Carley TRAVELING SALES EXECUTIVE Unavailable Unavailable Pleskach, Carley TRAVELING SALES EXECUTIVE Unavailable Unavailable Pleskach, Carley TRAVELING SALES EXECUTIVE Unavailable Unavailable Pleskach, Carley TRAVELING SALES EXECUTIVE Unavailable Unavailable Pleskach, Carley TRAVELING SALES EXECUTIVE Unavailable Unavailable Pleskach, Carley TRAVELING SALES EXECUTIVE Unavailable Unavailable Pleskach, Carley TRAVELING SALES EXECUTIVE Unavailable Unavailable Pleskach, Carley TRAVELING SALES EXECUTIVE Unavailable Unavailable Lawler, Alley Alicia PA Unavailable Unavailable Lawler, Alley Alicia PA Unavailable Unavailable Lawler, Alley Alicia PA Unavailable Unavailable Lawler, Alley Alicia PA Unavailable Unavailable Lawler, Alley Alicia PA Unavailable Unavailable Lawler, Alley Alicia PA Unavailable Unavailable Lawler, Alley Alicia PA Unavailable Unavailable Lawler, Alley Alicia PA Unavailable Unavailable Lawler, Alley Alicia PA Unavailable Unavailable Lawler, Alley Alicia PA Unavailable Unavailable Curt, A Mera BENAVIDES Unavailable [...] Mera BENAVIDES Unavailable Unavailable Curt, A Mera MD Unavailable Unavailable Curt, A Mera MD Unavailable Unavailable Curt, A Mera MD Unavailable Unavailable Curt, A Mera MD Unavailable Unavailable Curt, A Mera MD Unavailable Unavailable Curt, A Mera MD Unavailable Unavailable Curt, A Mera MD Unavailable Unavailable Ucrt, A Mera MD Unavailable Unavailable Curt, A Mera MD Unavailable Unavailable Curt, A Mear MD Unavailable Unavailable Curt, A Mera MD [...] is protected by Article 27-F of the [facility] Public Health law. If you continue you may have access to information: Regarding HIV / AIDS; Provided by facilities licensed or operated by the [facility] Office of Mental Health; or Provided by the [facility] Office for People With Developmental Disabilities. If such information is present, then the following [facility] mandated warning applies: This information has [...] law may result in a fine or mcc sentence or both. A general authorization for the release of medical or other information is NOT sufficient authorization for further disc losure. Allergies and Adverse Reactions Type Description Substance Reaction Status Data Source(s ) Drug Allergy NKDA NKDA [facility] ([facility]) Family History Family Member Name Family Member Gender Family Member Status Date o f Status Description Data Source(s) Unknown Unknown Problem [facility] ([facility], [facility]) mother,sisters x2 Unknown Unknown Problem [facility] ([facility] maternal side Unknown Male Problem [facility] ([facility], ) () - BRAIN Encounters Encounter Providers Location Date Indications Data Source(s ) Outpatient Attender: Alicia Gamboa Prim selvin 05/03/2020 12:20:00 PM EST [facility] ([facility], [facility]) Outpatient Attender: ARACELIS Gamboa Prim selvin 04/29/2020 07:00:00 AM EST [facility] ([facility], [facility]) Outpatient Attender: Carley Palomares [facility] Main Office 12/01/2019 1 0:00:00 AM EDT [facility] ([facility] Outpatient Attender: ARACELIS GONZALES Physical Therapy 10/28/2019 09:45:00 AM EDT [facility] ([facility]) Outpatient Referrer: ARACELIS GONZALES 09/29/2019 01:21 :00 PM EDT [facility] Radiology Imaging Outpatient Referrer: Mera Elias MD 09/29/2019 01:19:00 PM EDT [facility] Radiology Imaging Outpatient Referrer: Mera Elias MD 09/29/2019 01:19:00 PM EDT [facility] Radiology Imaging Outpatient Attender: ARACELIS GONZALES Physical Therapy 09/23/2019 10:00:00 AM EDT [facility] ([facility]) Outpatient Attender: Bisi GONZALES Main Office 08/25/2019 03:15:00 PM EDT [facility] ([facility] Medications Medication Brand Name Start Date Product Form Dose Route Admi nistrative Instructions Pharmacy Instructions Status Indications Reaction Description Data Source(s) Methylprednisolone Sodium Succinate To 125 MG 05/03/2020 1 2:00:00 AM EST completed [facility] ([facility]) Medication administered onsite Azithromycin 250 MG Oral Tablet Azithromycin 04/29/2020 12:00:00 AM EST active [facility] ([facility]) Prednisone 20 MG Oral Tablet Prednisone 04/29/2020 12:00:00 AM EST active [facility] ([facility]) atorvastatin 80 MG Oral Tablet Atorvastatin Calcium 12/04/2019 1 2:00:00 AM EDT ORAL active [facility] ( [facility] gabapentin 100 MG Oral Capsule Gabapentin 09/23/2019 12:00:00 AM EDT ORAL active [facility] ([facility]) Methylprednisolone 4 MG Oral Tablet [Medrol] Medrol 12:00:00 AM EDT active [facility] ( [facility]) meloxicam 15 MG Oral Tablet Meloxicam 08/25/2019 12:00:00 AM EDT ORAL active [facility] ([facility] meloxicam 15 MG Oral Tablet Meloxicam 08/25/2019 12:00:00 AM EDT ORAL active [facility] ([facility]) Insurance Providers Payer name Policy type / Coverage type Policy ID Covered green party ID Covered green party's relationship to sellers Policy Sellers Plan Information [facility] [id number] SP [id number] [facility] O [id number] S [id number] [facility] Commercial [id number] Self [id number] [facility] Commercial [id number] Self [id number] [facility] Commercial [id number] Self [id number] [facility] [id number] Self [id number] [place] Commercial [id number] Self 00 [id number] [facility] Commercial [id number] Self 00 [id number] [facility] [id number] Self [id number] [facility] Health Maintenance Organization (HMO) [id number] Self [id number] [facility] [id number] SP [id number] [facility] Commercial [id number] Self 00 [id number] [facility] Commercial [id number] Self [id number] [facility] Commercial Self [facility] Commercial Self [id number] Problems, Conditions, and Diagnoses Code Display Name Description Problem Type Effective Dates Data Source(s) 29230164 Allergic rhinitis Allergic rhinitis Problem 12/01/2019 12:00:00 AM EDT [facility] ([facility] [id number] Essential hypertension Essential hypertension Problem 12/01/2019 12:00:00 AM EDT [facility] ([facility] [id number] Obstructive sleep apnea syndrome Obstructive sle ep apnea syndrome Problem 12/01/2019 12:00:00 AM EDT [facility] ([facility] [id number] Adjustment disorder with depressed mood Adjustment disorder with depressed mood Problem 12/01/2019 12:00:00 AM EDT [facility] ([facility] Surgeries/Procedures Procedure Description Date Indications Data Source(s) Therapeutic, Prophylactic Or Diagnostic Injection Subq/Im 05/03/2020 12:00:00 AM EST [facility] ([facility] Traction Mechanical 12/08/2019 12:00:00 AM EDT [facility] ([facility] MANUAL THERAPY TQS 1/> REGIONS EACH 15 MINUTES 12:00:00 AM EDT [facility] ([facility]) Re-Eval Of PT Established Plan Of Care 20Mins Face To Face P T/Fam 12/08/2019 12:00:00 AM EDT [facility] ([facility]) Traction Mechanical 12/03/2019 12:00:00 AM EDT [facility] ([facility]) THERAPEUTIC PX 1/> AREAS EACH 15 MIN EXERCISES 12:00:00 AM EDT [facility] ([facility] MANUAL THERAPY TQS 1/> REGIONS EACH 15 MINUTES 12:00:00 AM EDT [facility] ([facility] ) Traction Mechanical 12/01/2019 12:00:00 AM EDT [facility] ([facility] ) THERAPEUTIC PX 1/> AREAS EACH 15 MIN EXERCISES 12:00:00 AM EDT [facility] ([facility] ) MANUAL THERAPY TQS 1/> REGIONS EACH 15 MINUTES 12:00:00 AM EDT [facility] ([facility] ) MANUAL THERAPY TQS 1/> REGIONS EACH 15 MINUTES 12:00:00 AM EDT [facility] ([facility]) THERAPEUTIC PX 1/> AREAS EACH 15 MIN EXERCISES 12:00:00 AM EDT [facility] ([facility]) Traction Mechanical 11/26/2019 12:00:00 AM EDT [facility] ([facility] ) Traction Mechanical 11/24/2019 12:00:00 AM EDT [facility] ([facility]) THERAPEUTIC PX 1/> AREAS EACH 15 MIN EXERCISES 12:00:00 AM EDT [facility] ([facility]) MANUAL THERAPY TQS 1/> REGIONS EACH 15 MINUTES 12:00:00 AM EDT [facility] ([facility] ) Traction Mechanical 11/19/2019 12:00:00 AM EDT [facility] ([facility]) THERAPEUTIC PX 1/> AREAS EACH 15 MIN EXERCISES 12:00:00 AM EDT [facility] ([facility]) MANUAL THERAPY TQS 1/> REGIONS EACH 15 MINUTES 12:00:00 AM EDT [facility] ([facility] MANUAL THERAPY TQS 1/> REGIONS EACH 15 MINUTES 12:00:00 AM EDT [facility] ([facility]) THERAPEUTIC PX 1/> AREAS EACH 15 MIN EXERCISES 12:00:00 AM EDT [facility] ([facility] ) Traction Mechanical 11/17/2019 12:00:00 AM EDT [facility] ([facility] ) Traction Mechanical 11/05/2019 12:00:00 AM EDT [facility] ([facility] ) THERAPEUTIC PX 1/> AREAS EACH 15 MIN EXERCISES 12:00:00 AM EDT [facility] ([facility] ) MANUAL THERAPY TQS 1/> REGIONS EACH 15 MINUTES 12:00:00 AM EDT [facility] ([facility] ) Traction Mechanical 11/03/2019 12:00:00 AM EDT [facility] ([facility] ) THERAPEUTIC PX 1/> AREAS EACH 15 MIN EXERCISES 12:00:00 AM EDT [facility] ([facility] ) MANUAL THERAPY TQS 1/> REGIONS EACH 15 MINUTES 12:00:00 AM EDT [facility] ([facility] ) MANUAL THERAPY TQS 1/> REGIONS EACH 15 MINUTES 12:00:00 AM EDT [facility] ([facility] ) THERAPEUTIC PX 1/> AREAS EACH 15 MIN EXERCISES 12:00:00 AM EDT [facility] ([facility] ) Traction Mechanical 10/28/2019 12:00:00 AM EDT [facility] ([facility] ) Traction Mechanical 10/22/2019 12:00:00 AM EDT [facility] ([facility] ) THERAPEUTIC PX 1/> AREAS EACH 15 MIN EXERCISES 12:00:00 AM EDT [facility] ([facility] ) MANUAL THERAPY TQS 1/> REGIONS EACH 15 MINUTES 12:00:00 AM EDT [facility] ([facility] ) Traction Mechanical 10/20/2019 12:00:00 AM EDT [facility] ([facility] ) THERAPEUTIC PX 1/> AREAS EACH 15 MIN EXERCISES 12:00:00 AM EDT [facility] ([facility] ) MANUAL THERAPY TQS 1/> REGIONS EACH 15 MINUTES 020 12:00:00 AM EDT [facility] ([facility] ) MANUAL THERAPY TQS 1/> REGIONS EACH 15 MINUTES 020 12:00:00 AM EDT [facility] ([facility] ) Physical Therapy Eval - Low Complexity 10/01/2019 12:0 0:00 AM EDT [facility] ([facility] ) Results ID Date Data Source [id number] 12/03/2019 09:33:00 AM EDT [facility] ([facility] [...] to the patient, ID Date Data Source [id number] 12/03/2019 09:33:00 AM EDT [facility] ([facility] [...] Serum or Plasma 45 mg/dL [facility] ([facility] A courtesy [...] to the patient, ID Date Data Source [id number] 12/03/2019 09:33:00 AM EDT [facility] ([facility] [...] by Automated count 4 % [facility] ([facility] A [...] to the patient, ID Date Data Source [id number] 12/04/2019 04:05:00 AM EDT [facility] Name Value [...] 0.0-0.1 [facility] ID Date Data Source [id number] 12/04/2019 06:06:00 AM EDT [facility] Name Value [...] IU/L 0-44 [facility] ID Date Data Source [id number] 12/04/2019 06:06:00 AM EDT [facility] Name Value [...] equation was developed through a collaboration with [facility] ([facility]).[1] The NIHcalculation overcomes the limitations of the existing FriedewaldLDL-C equation and performs equally well in both fasting andnon- fasting individuals.1. Reinaldo M, Vera C, Neeru Q, et al. A new equation forcalculation of low-density lipoprotein cholesterol in patients withn ormolipidemia and/or hypertriglyceridemia. JORJE Cardiol.2019Jun 03. doi:[email or web address] ID Date Data Source [id number] 10/13/2019 12:00:00 AM EDT [facility] Imaging Aracelis GONZALES Patient Name: JOSE JUAN RAZO[address] [facility] Date of : 1970[facility] [address] Date of Exam: 10/13/2019MEKA Moore [id number]#: Fax: [id number] EXAM: MRI LUMBAR SPINE WITHOUT CONTRASTCLINICAL INFORMATION: Back pain. Stenosis or HNP.COMPARISON: X-ray 08/27/2019.TECHNIQUE: Sagittal T1, T2 and T2 STIR images with axial T1 and [id number] angled through the discs of L1- 2 [...] or foraminal stenosis.Levels above intact.Accredited by the [employer] in MR.Anderson Diamond, MARION/[email or web address] you for referring LIONEL RAZO to our office. Electronically Signed - ANDERSON DIAMOND MD 10/16/19 10:26 Name Value Range Interpretation Code Description Data Geena rce(s) Supporting Document(s) Procedure Social History Code Duration Value Status Description Data Source(s ) Smoking 05/03/2020 12:00:00 AM EST Patient has never smoked co mpleted Patient has never smoked [facility] ([facility], [facility]) Smoking 12/01/2019 12:00:00 AM EDT Never Smoked Cigarettes com pleted Never Smoked Cigarettes [facility] ([facility] Vital Signs ID Date Data Source UNK Name Value Range Interpretation Code Description Data Source(s) Body weight 262.00 [lb_av] 262.00 [lb_av] MEDEN T ([facility], [facility]) Body temperature 99.3 [degF] 99.3 [degF] [facility], [facility]) Oxygen saturation in Arterial blood by Pulse oximetry 96 % 96 % [facility] ([facility], [facility]) Respiratory rate 23 /min 23 /min [facility] ( [facility]) Heart rate 96 /min 96 /min [facility] ([facility], [facility]) Diastolic blood pressure 81 mm[Hg] 81 mm[Hg] [facility] ([facility], [facility]) Systolic blood pressure 132 mm[Hg] 132 mm[Hg] M EDENT ([facility], [facility]) Body weight 262.00 [lb_av] 262.00 [lb_av] MEDEN T ([facility], [facility]) Body temperature 97.7 [degF] 97.7 [degF] [facility] ([facility], [facility]) Oxygen saturation in Arterial blood by Pulse oximetry 98 % 98 % [facility] ([facility], [facility]) Respiratory rate 16 /min 16 /min [facility] ( [facility], [facility]) Heart rate 77 /min 77 /min [facility] ([facility], [facility]) Diastolic blood pressure 89 mm[Hg] 89 mm[Hg] [facility] ([facility], [facility]) Systolic blood pressure 129 mm[Hg] 129 mm[Hg] M EDENT ([facility]) Body mass index (BMI) [Ratio] 37.4 kg/m2 [...] [Ratio] 35.9 kg/m2 35.9 k g/m2 [facility] ([facility] Body weight 265.00 [lb_av] 265.00 [lb_av] MEDEN T ([facility] ) Body height 72 [in_i] 72 [in_i] [facility] ([facility] 6'0" Body temperature 97.8 [degF] 97.8 [degF] [facility] ([facility] )
[2020-05-05] VITALS (7 sets, daily range): BP systolic 135–157; BP diastolic 81–87; O2SAT 95
[2020-05-05 07:09] LABS: HEMATOCRIT 45.4 % (42.0-52.0); MEAN CORPUSCULAR HEMOGLOBIN 30.4 pg (27.0-33.0); MEAN CORPUSCULAR VOLUME 91.9 fl (80.0-96.0); PLATELET COUNT, AUTOMATED 254 10^3/uL (150-450); RED BLOOD COUNT 4.94 10^6/uL (4.30-6.10); WHITE BLOOD COUNT 13.4 10^3/uL (4.0-10.0)
[2020-05-05 07:28] LABS: BLOOD UREA NITROGEN 16 MG/DL (7-18); CALCIUM LEVEL 8.8 MG/DL (8.5-10.1); CARBON DIOXIDE LEVEL 29 MEQ/L (21-32); CHLORIDE LEVEL 103 MEQ/L (98-107); CREATININE FOR GFR 1.03 MG/DL (0.70-1.30); GLOMERULAR FILTRATION RATE > 60.0 (>56); GLUCOSE, FASTING 109 MG/DL (70-100); POTASSIUM SERUM 4.2 MEQ/L (3.5-5.1); SODIUM LEVEL 141 MEQ/L (136-145)
[2020-05-05] MEDS: ACETAMINOPHEN TAB 650MG DOSE (2X325MG) PO PRN ×2 (07:58→20:24)
[2020-05-05] MEDS: VITAMIN D 1,000 INTERNATIONAL UNITS TABLET PO SCH (07:59)
[2020-05-05] MEDS: SERTRALINE HCL 50 MG TAB PO SCH (07:59)
[2020-05-05] MEDS: lisinopriL 10 MG TAB PO SCH (07:59)
[2020-05-05] MEDS: buPROPion **XL** TABLET 150MG (WELLBUTRIN XL) PO SCH (07:59)
[2020-05-05] MEDS: dexameTHASONE 4 MG/ML 1ML VIAL (J1100 PER 1MG) IV SCH (08:00)
[2020-05-05] MEDS: ATORVASTATIN 20 MG TAB PO SCH (08:00)
[2020-05-05] MEDS: ENOXAPARIN 40MG/0.4ML SYRINGE (J1650 PER 10MG) SC SCH (08:00)
[2020-05-05] MEDS ORDERED: COMBIVENT RESPIMAT 100-20MCG INHALER 4GM INH PRN (09:15)
[2020-05-05] MEDS: SYMBICORT 80/4.5MCG INHALER 6GM INH SCH ×2 (11:20→20:17)
[2020-05-05] MEDS: COMBIVENT RESPIMAT 100-20MCG INHALER 4GM INH SCH ×3 (12:00→20:16)
--- NOTE | 2020-05-05 13:33 | IPNPDOC ---
Text Note Date of Service The patient was seen on 05/05/20. NOTE Subjective: Patient states he did not sleep well overnight as he continued to have chest tightness and subsequent difficulty breathing. He states he did not receive any inhalers overnight. He also states he had fevers overnight but understood that that was normal. He states he has never had this pattern asthma exacerbation as an adult but as a child he was intubated around the age of 4 or 5 due to a bad asthma exacerbation. Objective: General: Sick-appearing male sitting upright in bed in mild distress speaking in complete sentences. HEENT: NC, AT. EOMI, no scleral icterus. No pharyngeal erythema, mucous membranes moist. Neck: No lymphadenopathy or JVD CV: RRR, Normal S1 and S2. No murmurs, gallops, or rubs. Resp: Diminished breath sounds bilaterally with shallow breaths. No wheezes, crackles, or rhonchi. No dullness to percussion. Abdomen: Bowel sounds present. Soft, NT, ND. Extremities: No swelling or edema. Assessment/Plan: 50-year-old male who presented [facility] emergency department with progressively worsening chills, dyspnea, cough and was admitted for Covid 19 pneumonia and an asthma exacerbation. #. Asthma exacerbation secondary to Covid 19 pneumonia -I feel likely has underlying problem is his asthma which has now been exacerbated by his underlying upper respiratory infection -Dexamethasone 6 mg IV daily -Scheduled combivent as patient received none overnight and is very tight and having difficulty breathing -Adding Symbicort inhaler as well. #. Covid 19 pneumonia -Patient showing right upper lobe pneumonia on chest x-ray however pro- calcitonin returning level of 0.06 this morning, antibiotics discontinued as patient is not showing any signs/symptoms of worsening upper respiratory infection currently. -Patient did require supplemental oxygen this morning so 2-3 L nasal cannula has been applied and he is saturating well however I feel his oxygen desaturation is likely from his asthma -Continue dexamethasone (day 2) #. Hypertension -Continue lisinopril #. Anxiety/depression -Continue bupropion and sertraline #. Dyslipidemia -Continue atorvastatin DVT prophylaxis: Lovenox. VS,Fishbone, I+O VS, Fishbone, I+O Laboratory Tests 05/04/20 15:48 05/05/20 06:46 Vital Signs Date Time Temp Pulse Resp B/P (MAP) Pulse Ox O2 Delivery O2 Flow Rate FiO2 05/05/20 12:00 94 Nasal Cannula 2.0 05/05/20 10:58 100.1 05/05/20 07:59 155/81 05/05/20 07:40 86 36 I&O- Last 24 Hours up to 6 AM 05/05/20 06:00 Intake Total 665 ml Balance 665 ml GME ATTESTATION GME ATTESTATION My faculty preceptor for this patient encounter was physically present during the encounter and was fully available. All aspects of the patient interview, examination, medical decision making process, and medical care plan development were reviewed and approved by the faculty preceptor. The faculty preceptor is aware and concurs with the plan as stated in the body of this note and will attest to such by his/her cosignature. ATTENDING NOTE I, Jonn Cotton MD, have independently examined this patient and performed my own physical exam, as well as reviewed the documentation and edited where necessary. I have discussed in detail with the resident / student the findings and plan of treatment as documented by the resident / student and edited their note. I agree with their findings and treatment plan and have edited their documentation. CLINTON WATTS DO May 05, 2020 13:33 JONN COTTON MD May 06, 2020 12:47
[2020-05-05] MEDS ORDERED: cefTRIAXone SOD 1 GM in D5W MINI-BAG PLUS 50 ML IV SCH (17:00)
[2020-05-05] MEDS ORDERED: AZITHROMYCIN INJ 500 MG, VIAL MATE ADAPTER 1 EACH in D5W 250 ML IV SCH (18:00)
[2020-05-06 00:42] VITALS: O2SAT 97
[2020-05-06 03:43] VITALS: O2SAT 95
[2020-05-06 04:00] VITALS: BP 158/86
[2020-05-06] MEDS: COMBIVENT RESPIMAT 100-20MCG INHALER 4GM INH SCH ×3 (04:00→07:33)
[2020-05-06 05:35] VITALS: O2SAT 95
[2020-05-06] MEDS: SYMBICORT 80/4.5MCG INHALER 6GM INH SCH (07:33)
[2020-05-06 08:03] VITALS: BP 139/84
[2020-05-06 08:22] LABS: HEMATOCRIT 43.8 % (42.0-52.0); HEMOGLOBIN 14.6 g/dl (13.5-17.5); MEAN CORPUSCULAR HEMOGLOBIN 30.1 pg (27.0-33.0); MEAN CORPUSCULAR HGB CONC 33.3 g/dl (32.0-36.5); MEAN CORPUSCULAR VOLUME 90.3 fl (80.0-96.0); PLATELET COUNT, AUTOMATED 268 10^3/uL (150-450); RED BLOOD COUNT 4.85 10^6/uL (4.30-6.10); WHITE BLOOD COUNT 12.5 10^3/uL (4.0-10.0)
[2020-05-06 08:40] LABS: BLOOD UREA NITROGEN 18 MG/DL (7-18); CALCIUM LEVEL 8.9 MG/DL (8.5-10.1); CARBON DIOXIDE LEVEL 25 MEQ/L (21-32); CHLORIDE LEVEL 100 MEQ/L (98-107); CREATININE FOR GFR 0.99 MG/DL (0.70-1.30); GLOMERULAR FILTRATION RATE > 60.0 (>56); GLUCOSE, FASTING 86 MG/DL (70-100); POTASSIUM SERUM 3.9 MEQ/L (3.5-5.1); SODIUM LEVEL 136 MEQ/L (136-145)
[2020-05-06] MEDS: buPROPion **XL** TABLET 150MG (WELLBUTRIN XL) PO SCH (09:45)
[2020-05-06] MEDS: SERTRALINE HCL 50 MG TAB PO SCH (09:45)
[2020-05-06] MEDS: ATORVASTATIN 20 MG TAB PO SCH (09:45)
[2020-05-06] MEDS: dexameTHASONE 4 MG/ML 1ML VIAL (J1100 PER 1MG) IV SCH (09:45)
[2020-05-06] MEDS: VITAMIN D 1,000 INTERNATIONAL UNITS TABLET PO SCH (09:45)
[2020-05-06 09:48] VITALS: BP 136/69
[2020-05-06] MEDS: lisinopriL 10 MG TAB PO SCH (09:48)
[2020-05-06] MEDS: ENOXAPARIN 40MG/0.4ML SYRINGE (J1650 PER 10MG) SC SCH (09:49)
[2020-05-06] MEDS ORDERED: PRED5TA PO (11:20)
[2020-05-06] MEDS ORDERED: COMBAER6 INH (11:20)
[2020-05-06] MEDS ORDERED: ZINC220CA PO (11:20)
[2020-05-06] MEDS ORDERED: SYMB80INH INH (11:20)
[2020-05-06] MEDS ORDERED: VITA250T4 PO (11:20)
--- NOTE | 2020-05-06 18:35 | DS.PDOC ---
Discharge Summary General Date of Admission May 04, 2020 at 18:19 Date of Discharge 05/06/2020 Primary Care Physician: Mera Elias Attending Physician: PRATIK STALLWORTH MD Discharge Summary PROCEDURES PERFORMED DURING STAY: None. ADMITTING/DISCHARGE DIAGNOSES: Covid 19 pneumonia Asthma exacerbation Hyperlipidemia Hypertension GERD Depression/anxiety COMPLICATIONS/CHIEF COMPLAINT: Covid-19, Pnemonia. HISTORY OF PRESENT ILLNESS: Mr. Antunez is a 50 year old male with asthma here with progressively worsening chills, dyspnea, and cough, found to have CAP superimposed on COVID 19 infection. At work, there is about 20 people out due to COVID 19 infection or quarantine. He was feeling okay until 10 days ago. He started to have worsening dyspnea and nonproductive cough. He thought it was related to his asthma and did not think much of it. His symptoms started to worsen with chills and malaise, and he came into the ED. CXR in the ED demonstrated right upper lobe pneumonia. He also tested positive for COVID 19. He does have a leukocytosis of 11.6. He is hemodynamically stable. He has a high fever of 102.7. He was tachypneic initially with respiratory rate of 35 and tachycardic. When I saw him, he was breathing at room air but he had trouble completing sentences. He was gasping for air. Otherwise, lungs were diminished. No wheezing, but he had just completed a breathing treatment. He is a never smoker. Patient will be admitted for CAP superimposed on COVID 19 infection HOSPITAL COURSE: Patient was admitted overnight and started on antibiotics for right upper lobe pneumonia as well as a when necessary Combivent for his asthma. On day 1 of hospitalization his breath sounds were significantly diminished and he seemed very tight in his chest so Symbicort, scheduled Combivent, dexamethasone was continued, and supplement oxygen was provided. By day 2 of his hospitalization he had clinically improve significantly and did not require any supplemental oxygen at rest. His pro-calcitonin returned at 0.06 so his antibiotics were discontinued. 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 DISCHARGE MEDICATIONS: Please see below. ALLERGIES: Please see below. PHYSICAL EXAMINATION ON DISCHARGE: VITAL SIGNS: Please see below. General: Well-appearing male sitting upright in bed in no acute distress speaking in complete sentences HEENT: NC, AT. EOMI, no scleral icterus. No pharyngeal erythema, mucous membranes moist. Neck: No lymphadenopathy or JVD CV: RRR, Normal S1 and S2. No murmurs, gallops, or rubs. Resp: Mildly breath sounds bilaterally with shallow breaths. No wheezes, crackles, or rhonchi. No dullness to percussion. Abdomen: Bowel sounds present. Soft, NT, ND. Extremities: No swelling or edema. Psychiatric: Normal mood and affect LABORATORY DATA: Please see below. IMAGIN05/04/2020 chest x-ray: Right upper lobe pneumonia PROGNOSIS: good ACTIVITY: As tolerated DIET: As tolerated DISCHARGE PLAN: Home DISPOSITION: 01 Home, Self-Care. DISCHARGE INSTRUCTIONS: 1. Is follow-up with PCP in the next 1-2 weeks. 2. Please follow up with pulmonology clinic in next 4 weeks. 3. Please return to hospital if symptoms worsen. 4. Please complete prednisone taper. DISCHARGE CONDITION: [Stable]. TIME SPENT ON DISCHARGE: 33 minutes. Vital Signs/I&Os Vital Signs Date Time Temp Pulse Resp B/P (MAP) Pulse Ox O2 Delivery O2 Flow Rate FiO2 05/06/20 09:48 136/69 05/06/20 08:03 98.4 87 17 93 Room Air 05/06/20 05:35 2.0 I&O- Last 24 Hours up to 6 AM 05/06/20 06:00 Intake Total 1680 ml Output Total 1500 ml Balance 180 ml Laboratory Data Labs 24H Laboratory Tests 2 05/06/20 07:31: Nucleated Red Blood Cells % (auto) 0.0, D-Dimer, Quantitative 576.55H, Anion Gap 11, Glomerular Filtration Rate > 60.0, Calcium Level 8.9 CBC/BMP Laboratory Tests 05/06/20 07:31 Microbiology Microbiology 05/04/20 Respiratory Virus Panel (PCR) ([facility]) - Final, Complete SARS-CoV-2 (COVID 19) 05/04/20 Blood Culture - Preliminary, Resulted No Growth after 48 hours. All Specime... Discharge Medications Scheduled Ascorbic Acid (Vitamin C) 250 Mg Tablet, 1 TAB PO DAILY Atorvastatin Calcium (Atorvastatin Calcium) 80 Mg Tablet, 40 MG PO DAILY, (Reported) Budesonide/Formoterol (Symbicort 80-4.5 Mcg Inhaler) 6.9 Gm Hfa.aer.ad, 2 PUFF INH RBID Bupropion HCl (Bupropion Xl) 300 Mg Tab, 300 MG PO DAILY, (Reported) Cholecalciferol (Vitamin D3) (Vitamin D3) 1,000 Unit Tablet, 1,000 UNITS PO DAILY, (Reported) Lisinopril (Lisinopril) 20 Mg Tablet, 10 MG PO DAILY, (Reported) Prednisone (Prednisone) 5 Mg Tablet, 5 MG PO DAILY Please take 4 tablets daily for 4 days, then 2 tablets daily for 4 days, then 1 tablet daily for 4 days. Sertraline HCl (Sertraline HCl) 100 Mg Tablet, 150 MG PO DAILY, (Reported) Zinc Sulfate (Zinc Sulfate) 220 Mg Capsule, 220 MG PO DAILY Scheduled PRN Ipratropium/Albuterol Sulfate (Combivent Respimat 20-100 Mcg) 4 Gm Mist.inhal, 1 PUFF INH Q4HP PRN for DYSPNEA Please take 1 puff every 4 hours as needed for shortness of breath or wheezing. Allergies Coded Allergies: SEASONAL ALLERGIES (Verified Allergy, Intermediate, hives, sneezing , 12/25/18) GME ATTESTATION GME ATTESTATION My faculty preceptor for this patient encounter was physically present during the encounter and was fully available. All aspects of the patient interview, examination, medical decision making process, and medical care plan development were reviewed and approved by the faculty preceptor. The faculty preceptor is aware and concurs with the plan as stated in the body of this note and will attest to such by his/her cosignature. CLINTON WATTS DO May 06, 2020 18:35
[2020-05-08 08:08] LABS: BODY FLUID CULTURE Not indicated. (.); LEGIONELLA ANTIGEN URINE Negative (Negative); ORGANISM ID Not indicated. (.); SPECIMEN SOURCE Urine (.); URINE STREP PNEUMONIAE ANTIGEN Negative (Negative)
== END 2020-05-06 14:40 | disposition home or self-care (01) | DRG 177 ==
LOC: M ED 15:10 → M ED INP 18:19 → M 4MAIN 05-05 01:03
PROVIDERS: ADMIT Internal Medicine; ATTEND Internal Medicine
PROC: 3E0333Z Introduction of Anti-inflammatory into Peripheral Vein, Percutaneous Approach (ICD-10-PCS; principal; 2020-05-04)
DX: U07.1 COVID-19 (principal); J12.89 Other viral pneumonia; J45.901 Unspecified asthma with (acute) exacerbation; E78.5 Hyperlipidemia, unspecified; I10 Essential (primary) hypertension; G47.30 Sleep apnea, unspecified; K21.9 Gastro-esophageal reflux disease without esophagitis; F32.9 Major depressive disorder, single episode, unspecified; F41.9 Anxiety disorder, unspecified; Z79.899 Other long term (current) drug therapy

== ENCOUNTER → 2021-04-28 | Outpatient (CLI) | payer OTHER ==
[~2021-04-28] MED LIST changes: +ATOR80TA59 PO; +COMBAER6 INH; +D31000TA2 PO; +HYDR-3490 PO; -HYDR25TAB PO; -LISI-538 PO; +LISI20TA33 PO; +LOSA50TA28; -LOSA50TA88; +PRED5TA PO; +PROAAER10 INH; +SERT-138 PO; +SYMB80INH INH; +VITA250T4 PO; +ZINC220CA PO
== END ==
LOC: M WUC 08:43
PROVIDERS: ATTEND Physician Assistant
DX: M77.32 Calcaneal spur, left foot (principal); M19.072 Primary osteoarthritis, left ankle and foot

== ENCOUNTER → 2021-05-29 | Outpatient (CLI) | payer OTHER | LOC: M LAB 08:48 | PROVIDERS: ATTEND Nurse Practitioner Family | DX: R06.02 Shortness of breath (principal) ==

== ENCOUNTER → 2021-10-04 | Outpatient (CLI) | payer OTHER ==
[~2021-10-04] MED LIST changes: -D31000TA2 PO; +VITA100093 PO
== END ==
LOC: M RAD 11:53
PROVIDERS: ATTEND Nurse Practitioner Family
DX: M54.50 Low back pain, unspecified (principal)

== ENCOUNTER → 2023-04-19 | Outpatient (CLI) | payer OTHER ==
[~2023-04-19] MED LIST changes: +ALBU6.7H6 INH; -PROV108A INH
[2023-04-19 16:41] LABS: ALBUMIN 4.7 G/DL (3.2-5.2); ALKALINE PHOSPHATASE 78 U/L (46-116); ALT/SGPT 88 U/L (7.0-40); AST/SGOT 93 U/L (<34); BILIRUBIN,TOTAL 0.8 MG/DL (0.3-1.2); BLOOD UREA NITROGEN 17 MG/DL (9-23); CALCIUM LEVEL 9.9 MG/DL (8.5-10.1); CARBON DIOXIDE LEVEL 31 MMOL/L (20-31); CHLORIDE LEVEL 105 MMOL/L (98-107); CHOLESTEROL LEVEL 190 MG/DL (<200); CHOLESTEROL RISK RATIO 4.11 (<5); CREATININE FOR GFR 1.19 MG/DL (0.70-1.30); GLOMERULAR FILTRATION RATE > 60.0 (>56); GLUCOSE, FASTING 101 MG/DL (60-100); HDL CHOLESTEROL 46.2 MG/DL (>40); LDL CHOLESTEROL 118.6 MG/DL (<100); NON-HDL-C 143.8 MG/DL; POTASSIUM SERUM 4.1 MMOL/L (3.5-5.1); SODIUM LEVEL 142 MMOL/L (136-145); TOTAL PROTEIN 8.1 G/DL (5.7-8.2); TRIGLYCERIDES LEVEL 126 MG/DL (<150)
== END ==
LOC: M WUC 11:25
PROVIDERS: ATTEND Nurse Practitioner Family
DX: I10 Essential (primary) hypertension (principal); E78.2 Mixed hyperlipidemia

== ENCOUNTER 2023-12-03 09:49 | Emergency (ER) | payer OTHER ==
[~2023-12-03] VITALS: Ht 188 cm; Wt 128.7 kg
[~2023-12-03 09:49] MED LIST changes: +BUPR-597 PO; -BUPR300T92 PO; +VITA250T27 PO; -VITA250T4 PO
[2023-12-03] MEDS ORDERED: ALBU8.5H (10:16)
[2023-12-03] MEDS ORDERED: BUSP10TA (10:16)
[2023-12-03] MEDS ORDERED: TIOT18INH INH (10:16)
[2023-12-03] MEDS: IPRATROPIUM 0.5MG/ALBUTEROL 2.5MG INH SOL UD 3ML (DUONEB) NEB ONE (12:02)
[2023-12-03] MEDS: ACETAMINOPHEN TAB 650MG DOSE (2X325MG) PO ONE (13:10)
[2023-12-03] MEDS ORDERED: VENTAER INH (13:17)
[2023-12-03] MEDS ORDERED: BENZ200C70 PO (13:17)
[2023-12-03] MEDS ORDERED: IPRA0.00 INH (13:17)
[2023-12-03 13:43] VITALS: BP 133/72; TEMP 101; O2SAT 96
== END 2023-12-03 13:46 | disposition home or self-care (01) ==
LOC: M ED 09:49
DX: U07.1 COVID-19 (principal); I10 Essential (primary) hypertension; J45.909 Unspecified asthma, uncomplicated; K21.9 Gastro-esophageal reflux disease without esophagitis; K57.92 Diverticulitis of intestine, part unspecified, without perforation or abscess without bleeding; F43.10 Post-traumatic stress disorder, unspecified; Z79.899 Other long term (current) drug therapy

== ENCOUNTER 2024-02-26 09:41 | Day surgery (SDC) | payer OTHER ==
[~2024-02-26] VITALS: Ht 182.9 cm; Wt 132.6 kg
[~2024-02-26 09:41] MED LIST changes: +ALBU8.5H; +BENZ200C70 PO; +BUSP10TA; +IPRA0.00 INH; +NS 250 ML IV ONE; +TIOT18INH INH; +VENTAER INH
[2024-02-26] MEDS ORDERED: propofoL 200 MG/20 ML VIAL As Ordered ONE (10:11)
[2024-02-26 10:48] VITALS: TEMP 98.6
[2024-02-26 11:00] VITALS: BP 136/87; O2SAT 96
== END 2024-02-26 11:05 | disposition home or self-care (01) ==
LOC: M OPP 09:41
PROVIDERS: ATTEND Surgery
DX: Z12.11 Encounter for screening for malignant neoplasm of colon (principal); Z12.12 Encounter for screening for malignant neoplasm of rectum; K63.5 Polyp of colon; K64.0 First degree hemorrhoids; K21.9 Gastro-esophageal reflux disease without esophagitis; J45.909 Unspecified asthma, uncomplicated; G47.30 Sleep apnea, unspecified; Z79.899 Other long term (current) drug therapy; Z90.89 Acquired absence of other organs

== ENCOUNTER → 2024-05-18 | Outpatient (CLI) | payer OTHER ==
[~2024-05-18] MED LIST changes: -NS 250 ML IV ONE
== END ==
LOC: M WUC 08:44
PROVIDERS: ATTEND Nurse Practitioner Family
DX: M79.672 Pain in left foot (principal)